=== PATIENT | female | born 1985 ===

== ENCOUNTER 2018-03-05 09:35 | Emergency (ER) | payer MEDICARE, BC ==
[~2018-03-05] VITALS: Ht 182.9 cm; Wt 145.2 kg
[2018-03-05] MEDS ORDERED: BACL20 PO (10:03)
[2018-03-05] MEDS ORDERED: GABA400 PO (10:03)
[2018-03-05] MEDS ORDERED: BELBUCA450 MCG BC (10:03)
[2018-03-05] MEDS ORDERED: DULO30 PO (10:04)
[2018-03-05] MEDS ORDERED: Synthroid25 MCG PO (10:04)
[2018-03-05] MEDS ORDERED: Amitriptyline100 MG PO (10:04)
[2018-03-05] MEDS ORDERED: Zofran Odt4 MG SL (11:01)
== END 2018-03-05 11:05 | disposition home or self-care (01) ==
LOC: ER 09:35
DX: S09.90XA Unspecified injury of head, initial encounter (principal); R11.2 Nausea with vomiting, unspecified; Z88.0 Allergy status to penicillin; Z79.899 Other long term (current) drug therapy; W18.30XA Fall on same level, unspecified, initial encounter
CPT/HCPCS: 70450; 99284-25

== ENCOUNTER 2018-05-21 09:32 | Emergency (ER) | payer MEDICARE, BC ==
[~2018-05-21] VITALS: Ht 182.9 cm; Wt 136.1 kg
[~2018-05-21 09:32] MED LIST: Amitriptyline100 MG PO; BACL20 PO; BELBUCA450 MCG BC; DULO30 PO; GABA400 PO; Synthroid25 MCG PO; Zofran Odt4 MG SL
[2018-05-21 11:08] LABS: BASOPHILS ABSOLUTE AUTO 0.02 K/mm3 (0.00-0.23); BASOPHILS PERCENT AUTO 0 % (0-2); EOSINOPHILS ABSOLUTE AUTO 0.02 K/mm3 (0.00-0.68); EOSINOPHILS PERCENT AUTO 0 % (0-6); Hematocrit 44.9 % (33.0-51.0); Hemoglobin 14.7 g/dL (11.5-16.0); IMMATURE GRAN ABSOLUTE AUTO 0.05 K/mm3 (0.00-0.10); IMMATURE GRAN PERCENT AUTO 1 % (0-1); LYMPHOCYTES ABSOLUTE AUTO 1.14 K/mm3 (0.84-5.20); LYMPHOCYTES PERCENT AUTO 14 % (21-46); MONOCYTES ABSOLUTE AUTO 0.46 K/mm3 (0.16-1.47); MONOCYTES PERCENT AUTO 6 % (4-13); Mean Corpuscular HGB 27.7 pg (26.0-34.0); Mean Corpuscular HGB Conc 32.7 g/dL (31.5-36.5); Mean Corpuscular Volume 85 fL (80-100); Mean Platelet Volume 10.3 fL (9.1-12.4); NEUTROPHILS ABSOLUTE AUTO 6.21 K/mm3 (1.96-9.15); NEUTROPHILS PERCENT AUTO 79 % (41-73); Platelet Count 251 K/mm3 (150-400); RDW Coefficient Variation 14.2 % (11.7-14.2); Red Blood Cell Count 5.31 M/mm3 (3.80-5.20)
[2018-05-21 11:32] LABS: Alanine Aminotransfer (ALT/SGP 67 U/L (12-78); Albumin, Blood 4.6 g/dL (3.4-5.0); Alk Phos 113 U/L (50-136); Anion Gap 8 mmol/L (6-16); Aspartate Aminotrans (AST/SGOT 27 U/L (12-37); Bilirubin, Total 0.8 mg/dL (0.1-1.0); Blood Urea Nitrogen 17 mg/dL (8-24); Bun/Creatinine Ratio 17.6 (12.0-20.0); CO2, Blood 27 mmol/L (21-32); Calcium, Blood 9.4 mg/dL (8.5-10.1); Chloride, Blood 103 mmol/L (98-108); Creatinine, Blood 0.96 mg/dL (0.40-1.00); Globulin, Blood 4.5 g/dL (2.2-4.0); Glomerular Filtration Rate >60 (60-); Glucose, Blood 115 mg/dL (70-99); Potassium, Blood 4.2 mmol/L (3.5-5.5); Sodium, Blood 138 mmol/L (136-145); Total Protein, Blood 9.1 g/dL (6.4-8.2)
[2018-05-21 11:45] LABS: Source, Urine Clean Catch
[2018-05-21 11:52] LABS: Appearance, Urine Hazy (Clear); Bilirubin, Urine Neg (Neg); Blood, Urine Neg (Neg); Color, Urine Yellow (P-Yellow); Glucose Qualitative, Urine Neg (Neg); Ketones, Urine 2+ (Neg); Leukocyte Esterase, Urine 1+ (Neg); Nitrite, Urine Neg (Neg); Protein, Urine 3+ (Neg); Specific Gravity, Urine 1.025 (1.003-1.022); Urobilinogen, Urine NORM (Normal)
[2018-05-21 12:47] LABS: Bacteria Mod /hpf; Red Blood Cells, Urine Not Seen /hpf (0-2); Squamous Epithelial Cells Few /hpf (Few)
[2018-05-21] MEDS ORDERED: PROM25 PO (12:49)
== END 2018-05-21 13:16 | disposition home or self-care (01) ==
LOC: ER 09:32
PROVIDERS: Emergency Medicine
DX: G35 Multiple sclerosis (principal); R11.2 Nausea with vomiting, unspecified; Z88.0 Allergy status to penicillin; Z79.899 Other long term (current) drug therapy
CPT/HCPCS: 36415; 80053; 81001; 81025; 85025; 87086; 96361; 96374; 96375; 99284-25; J2405; J2765; J7030

== ENCOUNTER 2018-06-01 18:28 | Emergency (ER) | payer MEDICARE, BC ==
[~2018-06-01] VITALS: Ht 182.9 cm; Wt 136.1 kg
[~2018-06-01 18:28] MED LIST changes: +PROM25 PO
[2018-06-01 19:23] LABS: BASOPHILS ABSOLUTE AUTO 0.02 K/mm3 (0.00-0.23); BASOPHILS PERCENT AUTO 0 % (0-2); EOSINOPHILS ABSOLUTE AUTO 0.03 K/mm3 (0.00-0.68); EOSINOPHILS PERCENT AUTO 0 % (0-6); Hematocrit 43.1 % (33.0-51.0); Hemoglobin 14.3 g/dL (11.5-16.0); IMMATURE GRAN ABSOLUTE AUTO 0.04 K/mm3 (0.00-0.10); IMMATURE GRAN PERCENT AUTO 1 % (0-1); LYMPHOCYTES PERCENT AUTO 19 % (21-46); MONOCYTES ABSOLUTE AUTO 0.44 K/mm3 (0.16-1.47); MONOCYTES PERCENT AUTO 7 % (4-13); Mean Corpuscular HGB 27.9 pg (26.0-34.0); Mean Corpuscular HGB Conc 33.2 g/dL (31.5-36.5); Mean Corpuscular Volume 84 fL (80-100); Mean Platelet Volume 10.3 fL (9.1-12.4); NEUTROPHILS PERCENT AUTO 73 % (41-73); Platelet Count 246 K/mm3 (150-400); RDW Coefficient Variation 13.8 % (11.7-14.2); RDW Standard Deviation 42.5 fL (35.1-46.3); Red Blood Cell Count 5.12 M/mm3 (3.80-5.20); White Blood Cell Count 6.73 K/mm3 (4.00-11.30)
[2018-06-01 19:47] LABS: Alanine Aminotransfer (ALT/SGP 69 U/L (12-78); Albumin, Blood 4.2 g/dL (3.4-5.0); Alk Phos 105 U/L (50-136); Anion Gap 6 mmol/L (6-16); Aspartate Aminotrans (AST/SGOT 29 U/L (12-37); Bilirubin, Total 0.5 mg/dL (0.1-1.0); Blood Urea Nitrogen 10 mg/dL (8-24); Bun/Creatinine Ratio 10.2 (12.0-20.0); CO2, Blood 27 mmol/L (21-32); Calcium, Blood 9.3 mg/dL (8.5-10.1); Chloride, Blood 105 mmol/L (98-108); Creatinine, Blood 0.98 mg/dL (0.40-1.00); Globulin, Blood 4.1 g/dL (2.2-4.0); Glomerular Filtration Rate >60 (60-); Glucose, Blood 94 mg/dL (70-99); Potassium, Blood 4.1 mmol/L (3.5-5.5); Sodium, Blood 138 mmol/L (136-145); Total Protein, Blood 8.3 g/dL (6.4-8.2)
[2018-06-01] MEDS ORDERED: PHENERGAN25 MG PR (20:05)
== END 2018-06-01 20:58 | disposition home or self-care (01) ==
LOC: ER 18:28
PROVIDERS: Emergency Medicine
DX: G35 Multiple sclerosis (principal); R11.2 Nausea with vomiting, unspecified; Z88.0 Allergy status to penicillin; Z79.899 Other long term (current) drug therapy
CPT/HCPCS: 36415; 80053; 85025; 96374; 96375; 99284-25; J1200; J2550

== ENCOUNTER 2018-12-19 16:03 | Emergency (ER) | payer MEDICARE, BC ==
[~2018-12-19] VITALS: Ht 177.8 cm; Wt 136.1 kg
[~2018-12-19 16:03] MED LIST changes: +PHENERGAN25 MG PR
[2018-12-19 16:46] LABS: BASOPHILS PERCENT AUTO 1 % (0-2); EOSINOPHILS ABSOLUTE AUTO 0.74 K/mm3 (0.00-0.68); EOSINOPHILS PERCENT AUTO 7 % (0-6); Hematocrit 43.3 % (33.0-51.0); Hemoglobin 14.2 g/dL (11.5-16.0); IMMATURE GRAN ABSOLUTE AUTO 0.14 K/mm3 (0.00-0.10); IMMATURE GRAN PERCENT AUTO 1 % (0-1); LYMPHOCYTES PERCENT AUTO 30 % (21-46); MONOCYTES ABSOLUTE AUTO 0.69 K/mm3 (0.16-1.47); MONOCYTES PERCENT AUTO 7 % (4-13); Mean Corpuscular HGB 28.2 pg (26.0-34.0); Mean Corpuscular HGB Conc 32.8 g/dL (31.5-36.5); Mean Corpuscular Volume 86 fL (80-100); Mean Platelet Volume 10.2 fL (9.1-12.4); NEUTROPHILS ABSOLUTE AUTO 5.64 K/mm3 (1.96-9.15); NEUTROPHILS PERCENT AUTO 54 % (41-73); NRBC ABSOLUTE 0.03 K/mm3 (0.00-0.02); NRBC Auto 0.3 /100 WBC (0.0-0.2); Platelet Count 290 K/mm3 (150-400); RDW Coefficient Variation 13.4 % (11.7-14.2); RDW Standard Deviation 41.5 fL (35.1-46.3); Red Blood Cell Count 5.03 M/mm3 (3.80-5.20); White Blood Cell Count 10.51 K/mm3 (4.00-11.30)
[2018-12-19 17:06] LABS: Source, Urine Clean Catch
[2018-12-19 17:08] LABS: Bilirubin, Urine Neg (Neg); Blood, Urine Neg (Neg); Glucose Qualitative, Urine Neg (Neg); Ketones, Urine 1+ (Neg); Leukocyte Esterase, Urine 3+ (Neg); Nitrite, Urine Neg (Neg); Protein, Urine Neg (Neg); Urobilinogen, Urine 1+ (Normal)
[2018-12-19 17:16] LABS: Alanine Aminotransfer (ALT/SGP 39 U/L (12-78); Albumin, Blood 4.1 g/dL (3.4-5.0); Alk Phos 127 U/L (50-136); Anion Gap 4 mmol/L (6-16); Aspartate Aminotrans (AST/SGOT 22 U/L (12-37); Bilirubin, Total 0.3 mg/dL (0.1-1.0); Blood Urea Nitrogen 12 mg/dL (8-24); Bun/Creatinine Ratio 15.2 (12.0-20.0); CO2, Blood 25 mmol/L (21-32); Calcium, Blood 9.2 mg/dL (8.5-10.1); Chloride, Blood 109 mmol/L (98-108); Creatinine, Blood 0.79 mg/dL (0.40-1.00); Glomerular Filtration Rate >60 (60-); Glucose, Blood 95 mg/dL (70-99); Potassium, Blood 3.9 mmol/L (3.5-5.5); Sodium, Blood 138 mmol/L (136-145); Total Protein, Blood 8.1 g/dL (6.4-8.2)
[2018-12-19 17:21] LABS: Appearance, Urine Clear (Clear); Bacteria Mod /hpf; Color, Urine Yellow (P-Yellow); Red Blood Cells, Urine 0-2 /hpf (0-2); Squamous Epithelial Cells Few /hpf (Few)
[2018-12-19] MEDS ORDERED: Tizanidine HCl2 MG (17:56)
[2019-01-17] MEDS ORDERED: DULO60 PO (11:14)
== END 2018-12-19 20:10 | disposition home or self-care (01) ==
LOC: ER 16:03
PROVIDERS: Physician Assistant
DX: G35 Multiple sclerosis (principal); R42 Dizziness and giddiness; Z88.0 Allergy status to penicillin; Z79.899 Other long term (current) drug therapy
CPT/HCPCS: 36415; 80053; 81001; 85025; 87077; 87086; 87186; 99284

== ENCOUNTER 2019-01-18 00:14 | Day surgery (SDC) | payer MEDICARE, BC ==
[~2019-01-18 00:14] MED LIST changes: +DULO60 PO; +Tizanidine HCl2 MG
== END 2019-01-18 11:10 | disposition home or self-care (01) ==
LOC: ATC 00:14
DX: G35 Multiple sclerosis (principal)
CPT/HCPCS: 96365; J2323

== ENCOUNTER 2019-01-22 16:14 | Emergency (ER) | payer MEDICARE, BC ==
[~2019-01-22] VITALS: Ht 180.3 cm; Wt 149.7 kg
== END 2019-01-22 19:42 | disposition home or self-care (01) ==
LOC: ER 16:14
DX: G35 Multiple sclerosis (principal); Z88.0 Allergy status to penicillin; Z79.899 Other long term (current) drug therapy
CPT/HCPCS: 96365; 99283-25; J1642; J2930

== ENCOUNTER 2019-01-23 18:49 | Emergency (ER) | payer MEDICARE, BC ==
[~2019-01-23] VITALS: Ht 182.9 cm; Wt 145.2 kg
== END 2019-01-23 21:30 | disposition home or self-care (01) ==
LOC: ER 18:49
DX: Z76.0 Encounter for issue of repeat prescription (principal); Z88.0 Allergy status to penicillin; Z79.899 Other long term (current) drug therapy
CPT/HCPCS: 96365; J2930

== ENCOUNTER 2019-01-24 18:55 | Emergency (ER) | payer MEDICARE, BC ==
[~2019-01-24] VITALS: Ht 182.9 cm; Wt 145.2 kg
== END 2019-01-24 20:44 | disposition home or self-care (01) ==
LOC: ER 18:55
DX: G35 Multiple sclerosis (principal); Z88.0 Allergy status to penicillin; Z79.899 Other long term (current) drug therapy
CPT/HCPCS: 96365; 99281-25; J2930

== ENCOUNTER 2019-02-17 00:18 | Day surgery (SDC) | payer MEDICARE, BC ==
--- NOTE | 2019-02-17 09:40 | NUR ---
PT DOESN'T TAKE PRE-MEDS.
--- NOTE | 2019-02-17 11:43 | NUR ---
PT DC'D 1 HOUR AFTER INFUSION COMPLETE, PER PROTOCOL. NO COMPLAINTS @ THIS TIME. LEFT FACILITY IN STABLE CONDITION.
== END 2019-02-17 11:42 | disposition home or self-care (01) ==
LOC: ATC 00:18
DX: G35 Multiple sclerosis (principal)
CPT/HCPCS: 96365; J1642; J2323

== ENCOUNTER 2019-03-23 00:16 | Day surgery (SDC) | payer MEDICARE, BC | END 2019-03-23 11:57 | disposition home or self-care (01) | LOC: ATC 00:16 | DX: G35 Multiple sclerosis (principal); Z88.0 Allergy status to penicillin; Z79.899 Other long term (current) drug therapy | CPT/HCPCS: 96365; J1642; J2323; J7050 ==

== ENCOUNTER 2019-04-15 00:24 | Day surgery (SDC) | payer MEDICARE, BC ==
--- NOTE | 2019-04-15 12:36 | NUR ---
PT REFUSED PRE-MEDS.
== END 2019-04-15 13:17 | disposition home or self-care (01) ==
LOC: ATC 00:24
DX: G35 Multiple sclerosis (principal)
CPT/HCPCS: 96365; J1642; J2323; J7050

== ENCOUNTER 2019-05-16 00:08 | Day surgery (SDC) | payer MEDICARE, BC ==
[2019-05-16] MEDS ORDERED: LAMOTRIGINE100 M1 PO (09:35)
[2019-05-16] MEDS ORDERED: Tysabri300 MG/15 IV (09:36)
== END 2019-05-16 11:39 | disposition home or self-care (01) ==
LOC: ATC 00:08
DX: G35 Multiple sclerosis (principal); Z79.899 Other long term (current) drug therapy; Z88.0 Allergy status to penicillin
CPT/HCPCS: 96365; J1642; J2323; J7050

== ENCOUNTER 2019-06-20 00:02 | Day surgery (SDC) | payer MEDICARE, BC ==
[~2019-06-20 00:02] MED LIST changes: +LAMOTRIGINE100 M1 PO; +Tysabri300 MG/15 IV
== END 2019-06-20 11:17 | disposition home or self-care (01) ==
LOC: ATC 00:02
DX: G35 Multiple sclerosis (principal); Z88.0 Allergy status to penicillin
CPT/HCPCS: 96375; 96413; A9270; J1642; J2323; J7050; Q0163

== ENCOUNTER 2019-08-24 00:10 | Day surgery (SDC) | payer MEDICARE, BC | END 2019-08-24 12:04 | disposition home or self-care (01) | LOC: ATC 00:10 | DX: G35 Multiple sclerosis (principal); M79.2 Neuralgia and neuritis, unspecified; F41.8 Other specified anxiety disorders; R26.81 Unsteadiness on feet; Z79.899 Other long term (current) drug therapy; Z88.0 Allergy status to penicillin | CPT/HCPCS: 96365; J1642; J2323; J7050 ==

== ENCOUNTER 2019-09-22 | Day surgery (SDC) | payer MEDICARE, BC | END 2019-09-22 11:07 | disposition home or self-care (01) | LOC: ATC | DX: G35 Multiple sclerosis (principal); F32.9 Major depressive disorder, single episode, unspecified; Z79.899 Other long term (current) drug therapy; Z88.0 Allergy status to penicillin; F41.9 Anxiety disorder, unspecified | CPT/HCPCS: 96365; J1642; J2323; J7050 ==

== ENCOUNTER 2019-09-30 09:18 | Emergency (ER) | payer MEDICARE, BC ==
[~2019-09-30] VITALS: Ht 182.9 cm; Wt 154.2 kg
[2019-09-30 10:36] LABS: BASOPHILS ABSOLUTE AUTO 0.13 K/mm3 (0.00-0.23); BASOPHILS PERCENT AUTO 2 % (0-2); EOSINOPHILS ABSOLUTE AUTO 1.28 K/mm3 (0.00-0.68); EOSINOPHILS PERCENT AUTO 16 % (0-6); Hematocrit 35.3 % (33.0-51.0); Hemoglobin 11.1 g/dL (11.5-16.0); IMMATURE GRAN ABSOLUTE AUTO 0.18 K/mm3 (0.00-0.10); IMMATURE GRAN PERCENT AUTO 2 % (0-1); LYMPHOCYTES ABSOLUTE AUTO 1.92 K/mm3 (0.84-5.20); LYMPHOCYTES PERCENT AUTO 24 % (21-46); MONOCYTES ABSOLUTE AUTO 0.56 K/mm3 (0.16-1.47); MONOCYTES PERCENT AUTO 7 % (4-13); Mean Corpuscular HGB 27.7 pg (26.0-34.0); Mean Corpuscular HGB Conc 31.4 g/dL (31.5-36.5); Mean Corpuscular Volume 88 fL (80-100); Mean Platelet Volume 9.3 fL (9.1-12.4); NEUTROPHILS PERCENT AUTO 49 % (41-73); NRBC Auto 1.3 /100 WBC (0.0-0.2); Platelet Count 237 K/mm3 (150-400); RDW Coefficient Variation 14.8 % (11.7-14.2); RDW Standard Deviation 47.1 fL (35.1-46.3); Red Blood Cell Count 4.01 M/mm3 (3.80-5.20); White Blood Cell Count 7.97 K/mm3 (4.00-11.30)
[2019-09-30 10:55] LABS: Alanine Aminotransfer (ALT/SGP 63 U/L (12-78); Albumin, Blood 3.6 g/dL (3.4-5.0); Alk Phos 125 U/L (50-136); Anion Gap 6 mmol/L (6-16); Aspartate Aminotrans (AST/SGOT 38 U/L (12-37); Bilirubin, Total 0.3 mg/dL (0.1-1.0); Blood Urea Nitrogen 17 mg/dL (8-24); Bun/Creatinine Ratio 18.8 (12.0-20.0); CO2, Blood 26 mmol/L (21-32); Calcium, Blood 8.4 mg/dL (8.5-10.1); Chloride, Blood 110 mmol/L (98-108); Globulin, Blood 3.5 g/dL (2.2-4.0); Glomerular Filtration Rate >60 (60-); Glucose, Blood 113 mg/dL (70-99); Potassium, Blood 4.2 mmol/L (3.5-5.5); Sodium, Blood 142 mmol/L (136-145); Total Protein, Blood 7.1 g/dL (6.4-8.2)
[2019-10-01] MEDS ORDERED: METHYLPREDNIS1000 M1 IV (14:37)
== END 2019-09-30 12:36 | disposition home or self-care (01) ==
LOC: ER 09:18
PROVIDERS: Emergency Medicine
DX: G35 Multiple sclerosis (principal); Z88.0 Allergy status to penicillin; Z79.899 Other long term (current) drug therapy
CPT/HCPCS: 36415; 80053; 85025; 96365; 99283-25; J2930

== ENCOUNTER 2019-10-01 00:38 | Day surgery (SDC) | payer MEDICARE, BC ==
[2019-10-01] MEDS ORDERED: METHYLPREDNIS1000 M1 IV (14:37)
== END 2019-10-01 22:35 | disposition home or self-care (01) ==
LOC: ATC 00:38
DX: G35 Multiple sclerosis (principal); F41.9 Anxiety disorder, unspecified; F32.9 Major depressive disorder, single episode, unspecified; Z79.899 Other long term (current) drug therapy
CPT/HCPCS: 96365; J1642

== ENCOUNTER 2019-10-04 00:13 | Day surgery (SDC) | payer MEDICARE, BC ==
[~2019-10-04 00:13] MED LIST changes: +METHYLPREDNIS1000 M1 IV
== END 2019-10-04 15:04 | disposition home or self-care (01) ==
LOC: ATC 00:13
DX: G35 Multiple sclerosis (principal); F41.9 Anxiety disorder, unspecified; F32.9 Major depressive disorder, single episode, unspecified; Z88.0 Allergy status to penicillin; Z79.899 Other long term (current) drug therapy
CPT/HCPCS: 96365; J1642; J2930

== ENCOUNTER 2019-10-05 00:11 | Day surgery (SDC) | payer MEDICARE, BC ==
--- NOTE | 2019-10-05 14:58 | NUR ---
ATTEMPTED TO FLUSH PORT AND PT C/O BURNING PAIN WITH ONLY 1 ML OF NS, NEEDLE EXCHANGED FOR NEW ONE. FLUSHES WELL PT DENIES ANY DISCOMFORT.
== END 2019-10-05 15:28 | disposition home or self-care (01) ==
LOC: ATC 00:11
DX: G35 Multiple sclerosis (principal); F32.9 Major depressive disorder, single episode, unspecified; F41.9 Anxiety disorder, unspecified; Z88.0 Allergy status to penicillin; Z79.899 Other long term (current) drug therapy
CPT/HCPCS: 96365; J1642; J2930

== ENCOUNTER 2019-10-20 00:05 | Day surgery (SDC) | payer MEDICARE, BC | END 2019-10-20 10:36 | disposition home or self-care (01) | LOC: ATC 00:05 | DX: G35 Multiple sclerosis (principal); F32.9 Major depressive disorder, single episode, unspecified; Z79.899 Other long term (current) drug therapy; Z88.0 Allergy status to penicillin | CPT/HCPCS: 96365; J1642; J2323; J7050 ==

== ENCOUNTER 2019-11-29 00:13 | Day surgery (SDC) | payer MEDICARE, BC ==
--- NOTE | 2019-11-29 11:04 | NUR ---
PT CONTINUES TO BE UNSTEADY ON FEET, PT ALSO WITH PAIN IN LOW BACK. THIS HAS BEEN GOING ON FOR MONTHS.
== END 2019-11-29 10:45 | disposition home or self-care (01) ==
LOC: ATC 00:13
DX: G35 Multiple sclerosis (principal); F32.9 Major depressive disorder, single episode, unspecified; Z79.899 Other long term (current) drug therapy; Z88.0 Allergy status to penicillin
CPT/HCPCS: 96365; J1642; J2323; J7050

== ENCOUNTER 2020-01-04 00:36 | Day surgery (SDC) | payer MEDICARE, BC ==
--- NOTE | 2020-01-04 08:15 | NUR ---
PT DECLINES PRE MEDS.
== END 2020-01-04 10:42 | disposition home or self-care (01) ==
LOC: ATC 00:36
DX: G35 Multiple sclerosis (principal); F32.9 Major depressive disorder, single episode, unspecified; Z88.0 Allergy status to penicillin; Z79.899 Other long term (current) drug therapy; F41.9 Anxiety disorder, unspecified; M79.2 Neuralgia and neuritis, unspecified
CPT/HCPCS: A9270; J1642; J2323; J7050; Q0163

== ENCOUNTER 2020-02-08 00:06 | Day surgery (SDC) | payer MEDICARE, BC ==
--- NOTE | 2020-02-08 09:00 | NUR ---
PT HERE FOR OMID, QUESTIONS ASKED AND NOTED ON FORM. PT TEMP ELEVATED SHE HAS A BEENIE CAP ON. PT VERY UNSTEADY.
[2020-02-08] MEDS ORDERED: TYSABRI IV (10:14)
== END 2020-02-08 11:10 | disposition home or self-care (01) ==
LOC: ATC 00:06
DX: G35 Multiple sclerosis (principal); Z88.0 Allergy status to penicillin; F32.9 Major depressive disorder, single episode, unspecified; Z79.899 Other long term (current) drug therapy
CPT/HCPCS: 96365; J1642; J2323; J7050

== ENCOUNTER 2020-03-14 02:39 | Day surgery (SDC) | payer MEDICARE, BC ==
[~2020-03-14 02:39] MED LIST changes: +TYSABRI IV
== END 2020-03-14 11:41 | disposition home or self-care (01) ==
LOC: ATC 02:39
DX: G35 Multiple sclerosis (principal); Z88.0 Allergy status to penicillin
CPT/HCPCS: 96365; J1642; J2323; J7050

== ENCOUNTER 2020-04-12 20:24 | Emergency (ER) | payer MEDICARE, BC ==
[~2020-04-12] VITALS: Ht 182.9 cm; Wt 154.2 kg
[2020-04-12] MEDS ORDERED: NEURONTIN300 MG (20:30)
== END 2020-04-12 22:02 | disposition home or self-care (01) ==
LOC: ER 20:24
DX: S91.311A Laceration without foreign body, right foot, initial encounter (principal); Z88.0 Allergy status to penicillin; Z79.899 Other long term (current) drug therapy; W25.XXXA Contact with sharp glass, initial encounter; Y92.002 Bathroom of unspecified non-institutional (private) residence as the place of occurrence of the external cause
CPT/HCPCS: 12001; 99282-25

== ENCOUNTER 2020-04-17 00:10 | Day surgery (SDC) | payer MEDICARE, BC ==
[~2020-04-17 00:10] MED LIST changes: +NEURONTIN300 MG
== END 2020-04-17 12:27 | disposition home or self-care (01) ==
LOC: ATC 00:10
DX: G35 Multiple sclerosis (principal); R26.89 Other abnormalities of gait and mobility; F32.9 Major depressive disorder, single episode, unspecified; F41.9 Anxiety disorder, unspecified; Z88.0 Allergy status to penicillin; Z79.899 Other long term (current) drug therapy
CPT/HCPCS: 96365; 96368; J1642; J2323; J7050

== ENCOUNTER 2020-05-16 00:09 | Day surgery (SDC) | payer MEDICARE, BC ==
[2020-05-16] MEDS ORDERED: TYSABRI IV (08:38)
[2020-10-18] MEDS ORDERED: CEPH500 PO (02:11)
== END 2020-05-16 11:06 | disposition home or self-care (01) ==
LOC: ATC 00:09
DX: G35 Multiple sclerosis (principal); R26.89 Other abnormalities of gait and mobility; F41.8 Other specified anxiety disorders; Z88.0 Allergy status to penicillin; Z79.899 Other long term (current) drug therapy
CPT/HCPCS: 96365; J1642; J2323; J7050

== ENCOUNTER 2020-06-25 08:16 | Day surgery (SDC) | payer MEDICARE, BC ==
--- NOTE | 2020-06-25 09:40 | NUR ---
PT REFUSED PRE-MEDS.
[2020-10-18] MEDS ORDERED: CEPH500 PO (02:11)
== END 2020-06-25 11:50 | disposition home or self-care (01) ==
LOC: ATC 08:16
DX: G35 Multiple sclerosis (principal); F32.9 Major depressive disorder, single episode, unspecified; F41.9 Anxiety disorder, unspecified; M79.2 Neuralgia and neuritis, unspecified; Z88.0 Allergy status to penicillin; Z79.899 Other long term (current) drug therapy
CPT/HCPCS: 96365; A9270; J1642; J2323; J7050

== ENCOUNTER 2020-08-18 23:47 | Emergency (ER) | payer MEDICARE, BC ==
[~2020-08-18] VITALS: Ht 182.9 cm; Wt 272.2 kg
[2020-08-19 00:30] LABS: BASOPHILS ABSOLUTE AUTO 0.05 K/mm3 (0.00-0.23); BASOPHILS PERCENT AUTO 1 % (0-2); EOSINOPHILS ABSOLUTE AUTO 1.08 K/mm3 (0.00-0.68); EOSINOPHILS PERCENT AUTO 15 % (0-6); Hematocrit 32.1 % (33.0-51.0); Hemoglobin 9.8 g/dL (11.5-16.0); IMMATURE GRAN ABSOLUTE AUTO 0.07 K/mm3 (0.00-0.10); IMMATURE GRAN PERCENT AUTO 1 % (0-1); LYMPHOCYTES ABSOLUTE AUTO 1.85 K/mm3 (0.84-5.20); LYMPHOCYTES PERCENT AUTO 26 % (21-46); MONOCYTES ABSOLUTE AUTO 0.56 K/mm3 (0.16-1.47); MONOCYTES PERCENT AUTO 8 % (4-13); Mean Corpuscular HGB 23.6 pg (26.0-34.0); Mean Corpuscular HGB Conc 30.5 g/dL (31.5-36.5); Mean Corpuscular Volume 77 fL (80-100); Mean Platelet Volume 9.2 fL (9.1-12.4); NEUTROPHILS ABSOLUTE AUTO 3.48 K/mm3 (1.96-9.15); NEUTROPHILS PERCENT AUTO 49 % (41-73); NRBC ABSOLUTE 0.03 K/mm3 (0.00-0.02); NRBC Auto 0.4 /100 WBC (0.0-0.2); Platelet Count 310 K/mm3 (150-400); RDW Coefficient Variation 16.3 % (11.7-14.2); RDW Standard Deviation 45.3 fL (35.1-46.3); Red Blood Cell Count 4.15 M/mm3 (3.80-5.20); White Blood Cell Count 7.09 K/mm3 (4.00-11.30)
[2020-08-19 00:47] LABS: Alanine Aminotransfer (ALT/SGP 73 U/L (12-78); Albumin, Blood 3.3 g/dL (3.4-5.0); Albumin/Globulin Ratio 0.9 (0.8-1.8); Alk Phos 129 U/L (50-136); Anion Gap 5 mmol/L (6-16); Aspartate Aminotrans (AST/SGOT 59 U/L (12-37); Bilirubin, Total 0.3 mg/dL (0.1-1.0); Blood Urea Nitrogen 11 mg/dL (8-24); Bun/Creatinine Ratio 11.2 (12.0-20.0); CO2, Blood 27 mmol/L (21-32); Calcium, Blood 8.7 mg/dL (8.5-10.1); Chloride, Blood 109 mmol/L (98-108); Creatinine, Blood 0.98 mg/dL (0.40-1.00); Globulin, Blood 3.7 g/dL (2.2-4.0); Glomerular Filtration Rate >60 (60-); Glucose, Blood 141 mg/dL (70-99); Potassium, Blood 4.2 mmol/L (3.5-5.5); Sodium, Blood 141 mmol/L (136-145)
== END 2020-08-19 02:47 | disposition home or self-care (01) ==
LOC: ER 23:47
PROVIDERS: Emergency Medicine
DX: M79.651 Pain in right thigh (principal); Z79.899 Other long term (current) drug therapy
CPT/HCPCS: 80053; 85025; 99284; A9270

== ENCOUNTER 2020-09-28 00:46 | Day surgery (SDC) | payer MEDICARE, BC ==
--- NOTE | 2020-09-28 09:20 | NUR ---
PT DECLINES PRE MEDS.
[2020-10-18] MEDS ORDERED: CEPH500 PO (02:11)
== END 2020-09-28 11:59 | disposition home or self-care (01) ==
LOC: ATC 00:46
DX: G35 Multiple sclerosis (principal); M79.2 Neuralgia and neuritis, unspecified; E66.01 Morbid (severe) obesity due to excess calories; Z68.42 Body mass index [BMI] 45.0-49.9, adult
CPT/HCPCS: 96365; J1642; J2323; J7050

== ENCOUNTER 2020-10-17 12:54 | Emergency (ER) | payer MEDICARE, BC ==
[~2020-10-17] VITALS: Ht 182.9 cm; Wt 272.2 kg
[2020-10-17 13:52] LABS: BASOPHILS ABSOLUTE AUTO 0.11 K/mm3 (0.00-0.23); BASOPHILS PERCENT AUTO 1 % (0-2); EOSINOPHILS ABSOLUTE AUTO 2.33 K/mm3 (0.00-0.68); EOSINOPHILS PERCENT AUTO 20 % (0-6); Hematocrit 33.4 % (33.0-51.0); Hemoglobin 10.1 g/dL (11.5-16.0); IMMATURE GRAN ABSOLUTE AUTO 0.15 K/mm3 (0.00-0.10); IMMATURE GRAN PERCENT AUTO 1 % (0-1); LYMPHOCYTES ABSOLUTE AUTO 2.94 K/mm3 (0.84-5.20); LYMPHOCYTES PERCENT AUTO 26 % (21-46); MONOCYTES ABSOLUTE AUTO 0.86 K/mm3 (0.16-1.47); MONOCYTES PERCENT AUTO 8 % (4-13); Mean Corpuscular HGB 23.1 pg (26.0-34.0); Mean Corpuscular HGB Conc 30.2 g/dL (31.5-36.5); Mean Corpuscular Volume 76 fL (80-100); NEUTROPHILS PERCENT AUTO 44 % (41-73); NRBC ABSOLUTE 0.17 K/mm3 (0.00-0.02); NRBC Auto 1.5 /100 WBC (0.0-0.2); Platelet Count 258 K/mm3 (150-400); RDW Coefficient Variation 17.2 % (11.7-14.2); RDW Standard Deviation 47.3 fL (35.1-46.3); Red Blood Cell Count 4.37 M/mm3 (3.80-5.20); White Blood Cell Count 11.49 K/mm3 (4.00-11.30)
[2020-10-17 14:09] LABS: Alanine Aminotransfer (ALT/SGP 60 U/L (12-78); Albumin, Blood 3.4 g/dL (3.4-5.0); Albumin/Globulin Ratio 0.9 (0.8-1.8); Alk Phos 149 U/L (50-136); Anion Gap 5 mmol/L (6-16); Aspartate Aminotrans (AST/SGOT 37 U/L (12-37); Bilirubin, Total 0.2 mg/dL (0.1-1.0); Blood Urea Nitrogen 11 mg/dL (8-24); Bun/Creatinine Ratio 11.1 (12.0-20.0); CO2, Blood 27 mmol/L (21-32); Calcium, Blood 8.6 mg/dL (8.5-10.1); Chloride, Blood 106 mmol/L (98-108); Creatinine, Blood 0.99 mg/dL (0.40-1.00); Globulin, Blood 3.7 g/dL (2.2-4.0); Glomerular Filtration Rate >60 (60-); Glucose, Blood 89 mg/dL (70-99); Potassium, Blood 4.1 mmol/L (3.5-5.5); Sodium, Blood 138 mmol/L (136-145); Total Protein, Blood 7.1 g/dL (6.4-8.2)
[2020-10-17 19:25] LABS: Source, Urine Clean Catch
[2020-10-17 19:28] LABS: Bilirubin, Urine Neg (Neg); Blood, Urine Neg (Neg); Glucose Qualitative, Urine Neg (Neg); Ketones, Urine Neg (Neg); Leukocyte Esterase, Urine 2+ (Neg); Nitrite, Urine Neg (Neg); Protein, Urine Neg (Neg); Urobilinogen, Urine NORM (Normal)
[2020-10-17 19:38] LABS: Appearance, Urine Hazy (Clear); Color, Urine Yellow (P-Yellow)
[2020-10-17 19:40] LABS: Bacteria Few /hpf; Red Blood Cells, Urine Not Seen /hpf (0-2); Squamous Epithelial Cells Mod /hpf (Few)
[2020-10-18] MEDS ORDERED: CEPH500 PO (02:11)
== END 2020-10-17 21:31 | disposition home or self-care (01) ==
LOC: ER 12:54
PROVIDERS: Emergency Medicine; Physician Assistant
DX: G35 Multiple sclerosis (principal); N39.0 Urinary tract infection, site not specified; Z88.0 Allergy status to penicillin; Z79.899 Other long term (current) drug therapy
CPT/HCPCS: 36415; 80053; 81001; 82550; 85025; 87086; 96365; 96367; 96375; 96376; 99283-25; J0696; J2270; J2930; P9612

== ENCOUNTER 2020-10-18 10:04 | Day surgery (SDC) | payer MEDICARE, BC ==
[~2020-10-18 10:04] MED LIST changes: +CEPH500 PO
== END 2020-10-18 11:55 | disposition home or self-care (01) ==
LOC: ATC 10:04
DX: G35 Multiple sclerosis (principal); N39.0 Urinary tract infection, site not specified
CPT/HCPCS: 96365; J1642; J2930

== ENCOUNTER 2020-10-19 04:54 | Day surgery (SDC) | payer MEDICARE, BC ==
[2020-10-20] MEDS ORDERED: SOLU-MEDROL1000 M1 IV (09:16)
== END 2020-10-19 10:13 | disposition home or self-care (01) ==
LOC: ATC 04:54
DX: G35 Multiple sclerosis (principal); Z88.0 Allergy status to penicillin
CPT/HCPCS: 96365; J1642; J2930

== ENCOUNTER 2020-10-20 08:53 | Day surgery (SDC) | payer MEDICARE, BC ==
--- NOTE | 2020-10-20 09:14 | NUR ---
PT AMBULATES TO ROOM WITH MINIMAL DIZZINESS. PT APPEARS TO BE FEELING BETTER.
[2020-10-20] MEDS ORDERED: SOLU-MEDROL1000 M1 IV (09:16)
== END 2020-10-20 09:40 | disposition home or self-care (01) ==
LOC: ATC 08:53
DX: G35 Multiple sclerosis (principal)
CPT/HCPCS: 96365; J1642; J2930

== ENCOUNTER 2020-10-21 08:47 | Day surgery (SDC) | payer MEDICARE, BC ==
[~2020-10-21 08:47] MED LIST changes: +SOLU-MEDROL1000 M1 IV
== END 2020-10-21 09:35 | disposition home or self-care (01) ==
LOC: ATC 08:47
DX: G35 Multiple sclerosis (principal); Z88.0 Allergy status to penicillin
CPT/HCPCS: 96365; J1642; J2930

== ENCOUNTER 2020-11-16 01:04 | Day surgery (SDC) | payer MEDICARE, BC | END 2020-11-16 22:46 | disposition home or self-care (01) | LOC: ATC 01:04 | DX: G35 Multiple sclerosis (principal); Z88.0 Allergy status to penicillin; Z87.440 Personal history of urinary (tract) infections ==

== ENCOUNTER 2020-12-19 01:54 | Day surgery (SDC) | payer MEDICARE, BC | END 2020-12-19 16:20 | disposition home or self-care (01) | LOC: ATC 01:54 | DX: G35 Multiple sclerosis (principal) | CPT/HCPCS: 96365; J1642; J2323; J7050 ==

== ENCOUNTER → 2021-02-22 | Outpatient (CLI) | payer MEDICARE, BC | END | disposition home or self-care (01) | LOC: LAB 18:00 → LAB SHORT 18:00 | DX: H16.002 Unspecified corneal ulcer, left eye (principal) | CPT/HCPCS: 87070; 87077; 87186; 87205 ==

== ENCOUNTER 2021-03-15 21:51 | Emergency (ER) | payer MEDICARE, BC ==
[~2021-03-15] VITALS: Ht 182.9 cm; Wt 161.9 kg
[2021-03-16 01:26] LABS: BASOPHILS ABSOLUTE AUTO 0.06 K/mm3 (0.00-0.23); BASOPHILS PERCENT AUTO 1 % (0-2); EOSINOPHILS ABSOLUTE AUTO 0.57 K/mm3 (0.00-0.68); EOSINOPHILS PERCENT AUTO 7 % (0-6); Hematocrit 37.7 % (33.0-51.0); Hemoglobin 11.5 g/dL (11.5-16.0); IMMATURE GRAN ABSOLUTE AUTO 0.05 K/mm3 (0.00-0.10); IMMATURE GRAN PERCENT AUTO 1 % (0-1); LYMPHOCYTES ABSOLUTE AUTO 1.76 K/mm3 (0.84-5.20); LYMPHOCYTES PERCENT AUTO 22 % (21-46); MONOCYTES ABSOLUTE AUTO 0.65 K/mm3 (0.16-1.47); MONOCYTES PERCENT AUTO 8 % (4-13); Mean Corpuscular HGB 22.2 pg (26.0-34.0); Mean Corpuscular HGB Conc 30.5 g/dL (31.5-36.5); Mean Corpuscular Volume 73 fL (80-100); Mean Platelet Volume 10.4 fL (9.1-12.4); NEUTROPHILS ABSOLUTE AUTO 5.11 K/mm3 (1.96-9.15); NEUTROPHILS PERCENT AUTO 62 % (41-73); Platelet Count 294 K/mm3 (150-400); RDW Coefficient Variation 16.2 % (11.7-14.2); RDW Standard Deviation 41.3 fL (35.1-46.3); Red Blood Cell Count 5.18 M/mm3 (3.80-5.20)
[2021-03-16 01:38] LABS: Alanine Aminotransfer (ALT/SGP 80 U/L (12-78); Albumin, Blood 3.6 g/dL (3.4-5.0); Albumin/Globulin Ratio 0.8 (0.8-1.8); Alk Phos 134 U/L (50-136); Anion Gap 6 mmol/L (6-16); Aspartate Aminotrans (AST/SGOT 42 U/L (12-37); Bilirubin, Total 0.4 mg/dL (0.1-1.0); Blood Urea Nitrogen 15 mg/dL (8-24); Bun/Creatinine Ratio 16.7 (12.0-20.0); CO2, Blood 25 mmol/L (21-32); Calcium, Blood 9.3 mg/dL (8.5-10.1); Chloride, Blood 103 mmol/L (98-108); Globulin, Blood 4.3 g/dL (2.2-4.0); Glomerular Filtration Rate >60 (60-); Glucose, Blood 117 mg/dL (70-99); Potassium, Blood 3.4 mmol/L (3.5-5.5); Sodium, Blood 134 mmol/L (136-145); Total Protein, Blood 7.9 g/dL (6.4-8.2)
[2021-03-16 04:22] LABS: Source, Urine Clean Catch
[2021-03-16 04:24] LABS: Appearance, Urine Clear (Clear); Blood, Urine Neg (Neg); Color, Urine Amber (P-Yellow); Glucose Qualitative, Urine Neg (Neg); Ketones, Urine 3+ (Neg); Leukocyte Esterase, Urine Neg (Neg); Nitrite, Urine Neg (Neg); Protein, Urine 2+ (Neg); Specific Gravity, Urine 1.025 (1.003-1.022); Urobilinogen, Urine 1+ (Normal)
[2021-03-16 04:26] LABS: Bilirubin, Urine 1+ (Neg)
[2021-03-16 04:31] LABS: Amorphous Light (0-Heavy); Bacteria Few /hpf; Red Blood Cells, Urine 0-2 /hpf (0-2); White Blood Cells, Urine 0-2 /hpf (0-5)
[2021-03-16 04:32] LABS: Mucus Light (0-Heavy); Squamous Epithelial Cells Few /hpf (Few)
== END 2021-03-16 06:00 | disposition home or self-care (01) ==
LOC: ER 21:51
PROVIDERS: Student in an Organized Health Care Education/Training Program
DX: G35 Multiple sclerosis (principal); Z88.0 Allergy status to penicillin; Z79.899 Other long term (current) drug therapy; Z79.52 Long term (current) use of systemic steroids
CPT/HCPCS: 51701; 80053; 81001; 85025; 96365; 96366; 96375; 99284-25; J1885; J2930; J7030

== ENCOUNTER 2021-03-16 18:49 | Emergency (ER) | payer MEDICARE, BC ==
[~2021-03-16] VITALS: Ht 182.9 cm; Wt 121.1 kg
== END 2021-03-16 22:20 | disposition home or self-care (01) ==
LOC: ER 18:49
DX: G35 Multiple sclerosis (principal); Z88.0 Allergy status to penicillin; Z79.899 Other long term (current) drug therapy
CPT/HCPCS: 36415; 96374; 99281-25; J2930

== ENCOUNTER 2021-03-21 11:29 | Emergency (ER) | payer MEDICARE, BC ==
[~2021-03-21] VITALS: Ht 182.9 cm; Wt 170.1 kg
[2021-03-21] MEDS ORDERED: Crutch1 EACH MISC (14:30)
[2021-03-21] MEDS ORDERED: Norco 5-325 Ta1 EACH PO (14:30)
== END 2021-03-21 14:45 | disposition home or self-care (01) ==
LOC: ER 11:29
DX: S82.831A Other fracture of upper and lower end of right fibula, initial encounter for closed fracture (principal); Z88.0 Allergy status to penicillin; Z79.899 Other long term (current) drug therapy; W19.XXXA Unspecified fall, initial encounter
CPT/HCPCS: 29515; 73610; 96372; 99283-25; A9270; J3010

== ENCOUNTER 2021-04-11 01:18 | Day surgery (SDC) | payer MEDICARE, BC ==
[~2021-04-11 01:18] MED LIST changes: +Crutch1 EACH MISC; +Norco 5-325 Ta1 EACH PO
== END 2021-04-11 16:15 | disposition home or self-care (01) ==
LOC: ATC 01:18
DX: G35 Multiple sclerosis (principal); Z88.0 Allergy status to penicillin; Z77.22 Contact with and (suspected) exposure to environmental tobacco smoke (acute) (chronic)
CPT/HCPCS: 96365; J1642; J2323; J7050

== ENCOUNTER 2021-10-14 00:25 | Day surgery (SDC) | payer MEDICARE, BC ==
[~2021-10-14] VITALS: Wt 170.9 kg
== END 2021-10-14 11:43 | disposition home or self-care (01) ==
LOC: ATC 00:25
DX: G35 Multiple sclerosis (principal)
CPT/HCPCS: 96365; A9270; J1200; J1642; J1720; J2323; J7040

== ENCOUNTER 2021-10-25 09:53 | Day surgery (SDC) | payer MEDICARE, BC | END 2021-10-25 15:20 | disposition home or self-care (01) | LOC: ATC 09:53 | DX: G35 Multiple sclerosis (principal); Z88.0 Allergy status to penicillin; Z90.49 Acquired absence of other specified parts of digestive tract | CPT/HCPCS: J1642; J2930 ==

== ENCOUNTER 2021-10-26 13:54 | Day surgery (SDC) | payer MEDICARE, BC | END 2021-10-26 14:59 | disposition home or self-care (01) | LOC: ATC 13:54 | DX: G35 Multiple sclerosis (principal) | CPT/HCPCS: J1642; J2930 ==

== ENCOUNTER 2021-12-11 01:58 | Day surgery (SDC) | payer MEDICARE, BC ==
[2021-12-11 16:37] LABS: Albumin, Blood 3.5 g/dL (3.4-5.0); Bilirubin, Total 0.3 mg/dL (0.1-1.0); Bun/Creatinine Ratio 12.2 (12.0-20.0); Creatinine, Blood 0.9 mg/dL (0.40-1.00); Globulin, Blood 3.6 g/dL (2.2-4.0); Potassium, Blood 3.7 mmol/L (3.5-5.5); Total Protein, Blood 7.1 g/dL (6.4-8.2)
[2021-12-12 08:10] LABS: IMMUNOGLOBULIN G, QN, SERUM 1258 mg/dL (586-1602); IMMUNOGLOBULIN M, QN, SERUM 78 mg/dL (26-217)
== END 2021-12-11 17:10 | disposition home or self-care (01) ==
LOC: ATC 01:58
PROVIDERS: Psychiatry & Neurology Neurology with Special Qualifications in Child Neurology
DX: G35 Multiple sclerosis (principal)
CPT/HCPCS: 80053; 82306; 82784; 96365; A9270; J1642; J2323; J7040

== ENCOUNTER 2022-03-11 03:51 | Day surgery (SDC) | payer MEDICARE, BC ==
[~2022-03-11 03:51] MED LIST changes: +OCUFLOX510 RIGHTEYE; +Percocet 5-3251 EACH PO
== END 2022-03-11 16:40 | disposition home or self-care (01) ==
LOC: ATC 03:51
DX: G35 Multiple sclerosis (principal); Z88.0 Allergy status to penicillin
CPT/HCPCS: J1642; J2323; J7040

== ENCOUNTER 2022-04-24 01:10 | Day surgery (SDC) | payer MEDICARE, BC ==
[~2022-04-24] VITALS: Wt 162.4 kg
--- NOTE | 2022-04-24 09:52 | NUR ---
PT HANDED PO MEDS AND PT REFUSED SO THEY WERE THROWN AWAY
== END 2022-04-24 10:58 | disposition home or self-care (01) ==
LOC: ATC 01:10
DX: G35 Multiple sclerosis (principal)
CPT/HCPCS: 96365; A9270; J1642; J2323; J7050

== ENCOUNTER 2022-04-28 10:58 | Emergency (ER) | payer MEDICARE, BC ==
[~2022-04-28] VITALS: Ht 182.9 cm; Wt 154.2 kg
[2022-04-28 12:06] LABS: BASOPHILS ABSOLUTE AUTO 0.09 K/mm3 (0.00-0.23); BASOPHILS PERCENT AUTO 1 % (0-2); EOSINOPHILS ABSOLUTE AUTO 0.44 K/mm3 (0.00-0.68); EOSINOPHILS PERCENT AUTO 6 % (0-6); Hematocrit 39.6 % (33.0-51.0); Hemoglobin 12.9 g/dL (11.5-16.0); IMMATURE GRAN ABSOLUTE AUTO 0.05 K/mm3 (0.00-0.10); IMMATURE GRAN PERCENT AUTO 1 % (0-1); LYMPHOCYTES ABSOLUTE AUTO 2.89 K/mm3 (0.84-5.20); LYMPHOCYTES PERCENT AUTO 36 % (21-46); MONOCYTES ABSOLUTE AUTO 0.64 K/mm3 (0.16-1.47); MONOCYTES PERCENT AUTO 8 % (4-13); Mean Corpuscular HGB Conc 32.6 g/dL (31.5-36.5); Mean Corpuscular Volume 80 fL (80-100); Mean Platelet Volume 10.1 fL (9.1-12.4); NEUTROPHILS ABSOLUTE AUTO 3.87 K/mm3 (1.96-9.15); NEUTROPHILS PERCENT AUTO 49 % (41-73); NRBC ABSOLUTE 0.04 K/mm3 (0.00-0.02); NRBC Auto 0.5 /100 WBC (0.0-0.2); Platelet Count 241 K/mm3 (150-400); RDW Coefficient Variation 16.1 % (11.7-14.2); RDW Standard Deviation 46.2 fL (35.1-46.3); Red Blood Cell Count 4.97 M/mm3 (3.80-5.20); White Blood Cell Count 7.98 K/mm3 (4.00-11.30)
[2022-04-28 12:24] LABS: Albumin, Blood 3.6 g/dL (3.4-5.0); Albumin/Globulin Ratio 0.9 (0.8-1.8); Bilirubin, Total 0.4 mg/dL (0.1-1.0); Bun/Creatinine Ratio 7.8 (12.0-20.0); Creatinine, Blood 0.9 mg/dL (0.40-1.00); Globulin, Blood 4.1 g/dL (2.2-4.0); Potassium, Blood 3.9 mmol/L (3.5-5.5); Total Protein, Blood 7.7 g/dL (6.4-8.2)
== END 2022-04-28 19:20 | disposition home or self-care (01) ==
LOC: ER 10:58
PROVIDERS: Physician Assistant
DX: G35 Multiple sclerosis (principal); Z88.0 Allergy status to penicillin; Z79.899 Other long term (current) drug therapy
CPT/HCPCS: 36415; 80053; 85025; A9270; J2930

== ENCOUNTER 2022-04-29 09:47 | Day surgery (SDC) | payer MEDICARE, BC | END 2022-04-29 16:09 | disposition home or self-care (01) | LOC: ATC 09:47 | DX: G35 Multiple sclerosis (principal) | CPT/HCPCS: 96365; J1642; J2930 ==

== ENCOUNTER 2022-04-30 00:51 | Day surgery (SDC) | payer MEDICARE, BC | END 2022-04-30 15:10 | disposition home or self-care (01) | LOC: ATC 00:51 | DX: G35 Multiple sclerosis (principal) | CPT/HCPCS: 96365; J1642; J2930 ==

== ENCOUNTER 2022-05-01 10:39 | Emergency (ER) | payer MEDICARE, BC ==
[~2022-05-01] VITALS: Ht 182.9 cm; Wt 145.2 kg
== END 2022-05-01 15:06 | disposition home or self-care (01) ==
LOC: ER 10:39
DX: H53.2 Diplopia (principal); G35 Multiple sclerosis; Z88.0 Allergy status to penicillin; Z79.899 Other long term (current) drug therapy
CPT/HCPCS: A9270

== ENCOUNTER 2022-05-29 02:35 | Day surgery (SDC) | payer MEDICARE, BC | END 2022-05-29 11:22 | disposition home or self-care (01) | LOC: ATC 02:35 | DX: G35 Multiple sclerosis (principal) | CPT/HCPCS: 96365; J1642; J2323; J7040 ==

== ENCOUNTER 2022-08-22 09:06 | Day surgery (SDC) | payer MEDICARE, BC ==
[2022-08-22] VITALS (12 sets, daily range): BP systolic 117–156; BP diastolic 64–99
[~2022-08-22] VITALS: Ht 177.8 cm; Wt 158.9 kg
[~2022-08-22 09:06] MED LIST changes: +TIZA4 PO; -Tizanidine HCl2 MG
--- NOTE | 2022-08-22 12:26 | NUR ---
REPORT RECEIVED FROM RYAN COYLE. VSS. PT ABLE TO REPOSITION SELF IN BED. PT REQUESTING PO FLUIDS AND FOOD AND TOLERATING THEM WELL. PT DENIES PAIN OR NAUSEA AT THIS TIME. PT DRESSING C/D/I WITHOUT DRAINAGE, REDNESS, OR SWELLING.
--- NOTE | 2022-08-22 13:11 | NUR ---
Patient up to Ambulate independently. Gait steady and consistent with pt baseline. Discharge instructions reviewed with patient. Patient verbalizes understanding. Copy given to patient to take home. Dressing to procedure site clean, dry, intact with no visible drainage, swelling, erythema or bruising noted. Patient States Post-Procedure ride home has been arranged. Discharged via wheelchair to private car for ride home. PT BELONGINGS RETURNED TO PT.
[2022-08-26] MEDS ORDERED: AMPYRA10 MG PO (15:17)
== END 2022-08-22 22:58 | disposition home or self-care (01) ==
LOC: ORSCMMR 09:06 → ORD 10:30 → ORSCMMR 10:30
PROVIDERS: Surgery
PROC: 0JPT0WZ Removal of Totally Implantable Vascular Access Device from Trunk Subcutaneous Tissue and Fascia, Open Approach (ICD-10-PCS; principal; 2022-08-22 10:30)
PROC: 05PY03Z Removal of Infusion Device from Upper Vein, Open Approach (ICD-10-PCS; principal; 2022-08-22 10:30)
PROC: B543ZZA Ultrasonography of Right Jugular Veins, Guidance (ICD-10-PCS; principal; 2022-08-22 10:30)
PROC: 05HM33Z Insertion of Infusion Device into Right Internal Jugular Vein, Percutaneous Approach (ICD-10-PCS; principal; 2022-08-22 10:30)
PROC: 0JH63WZ Insertion of Totally Implantable Vascular Access Device into Chest Subcutaneous Tissue and Fascia, Percutaneous Approach (ICD-10-PCS; principal; 2022-08-22 10:30)
DX: G35 Multiple sclerosis (principal)
CPT/HCPCS: 77001; C1788; J0690; J1100; J1642; J2250; J2405; J2704; J3010; J7120

== ENCOUNTER 2022-09-23 01:35 | Day surgery (SDC) | payer MEDICARE, BC ==
[~2022-09-23 01:35] MED LIST changes: +AMPYRA10 MG PO
== END 2022-09-23 22:48 | disposition home or self-care (01) ==
LOC: ATC 01:35
DX: G35 Multiple sclerosis (principal)
CPT/HCPCS: A9270; J1642; J7050

== ENCOUNTER 2022-09-26 02:41 | Day surgery (SDC) | payer MEDICARE, BC ==
[2022-09-26 14:02] VITALS: BP 137/66
== END 2022-09-26 16:01 | disposition home or self-care (01) ==
LOC: ATC 02:41
DX: G35 Multiple sclerosis (principal)
CPT/HCPCS: 96365; J1642; J2323; J7050

== ENCOUNTER 2022-10-09 03:34 | Day surgery (SDC) | payer MEDICARE, BC ==
[2022-10-09 13:42] VITALS: BP 142/98
== END 2022-10-09 14:24 | disposition home or self-care (01) ==
LOC: ATC 03:34
DX: G35 Multiple sclerosis (principal); Z88.0 Allergy status to penicillin; Z79.899 Other long term (current) drug therapy
CPT/HCPCS: 96365; J1642; J2930

== ENCOUNTER 2022-10-10 02:45 | Day surgery (SDC) | payer MEDICARE, BC ==
[2022-10-10 15:14] VITALS: BP 155/100
== END 2022-10-10 15:49 | disposition home or self-care (01) ==
LOC: ATC 02:45
DX: G35 Multiple sclerosis (principal)
CPT/HCPCS: 96365; J1642; J2930

== ENCOUNTER 2022-12-06 19:00 | Emergency (ER) | payer MEDICARE, BC ==
[~2022-12-06] VITALS: Ht 182.9 cm; Wt 90.7 kg
[2022-12-06 19:36] VITALS: BP 179/98
[2022-12-06 20:11] LABS: BASOPHILS ABSOLUTE AUTO 0.05 K/mm3 (0.00-0.23); BASOPHILS PERCENT AUTO 1 % (0-2); EOSINOPHILS ABSOLUTE AUTO 0.24 K/mm3 (0.00-0.68); EOSINOPHILS PERCENT AUTO 3 % (0-6); Hematocrit 38.4 % (33.0-51.0); Hemoglobin 12.9 g/dL (11.5-16.0); IMMATURE GRAN PERCENT AUTO 1 % (0-1); LYMPHOCYTES ABSOLUTE AUTO 3.34 K/mm3 (0.84-5.20); LYMPHOCYTES PERCENT AUTO 41 % (21-46); MONOCYTES ABSOLUTE AUTO 0.58 K/mm3 (0.16-1.47); MONOCYTES PERCENT AUTO 7 % (4-13); Mean Corpuscular HGB 28.2 pg (26.0-34.0); Mean Corpuscular HGB Conc 33.6 g/dL (31.5-36.5); Mean Corpuscular Volume 84 fL (80-100); Mean Platelet Volume 10.7 fL (9.1-12.4); NEUTROPHILS ABSOLUTE AUTO 3.83 K/mm3 (1.96-9.15); NEUTROPHILS PERCENT AUTO 47 % (41-73); NRBC ABSOLUTE 0.05 K/mm3 (0.00-0.02); NRBC Auto 0.6 /100 WBC (0.0-0.2); Platelet Count 293 K/mm3 (150-400); RDW Standard Deviation 49.4 fL (35.1-46.3); Red Blood Cell Count 4.58 M/mm3 (3.80-5.20); White Blood Cell Count 8.14 K/mm3 (4.00-11.30)
[2022-12-06 20:44] LABS: Albumin, Blood 3.9 g/dL (3.4-5.0); Albumin/Globulin Ratio 1.1 (0.8-1.8); Bilirubin, Total 0.6 mg/dL (0.1-1.0); Creatinine, Blood 0.64 mg/dL (0.40-1.00); Globulin, Blood 3.5 g/dL (2.2-4.0); Potassium, Blood 3.2 mmol/L (3.5-5.5); Total Protein, Blood 7.4 g/dL (6.4-8.2)
== END 2022-12-06 23:06 | disposition home or self-care (01) ==
LOC: ER 19:00
PROVIDERS: Student in an Organized Health Care Education/Training Program
DX: G35 Multiple sclerosis (principal); Z88.0 Allergy status to penicillin; Z79.899 Other long term (current) drug therapy
CPT/HCPCS: 80053; 85025; 96365; 99281-25; J2930

== ENCOUNTER 2022-12-08 11:58 | Emergency (ER) | payer MEDICARE, BC ==
[~2022-12-08] VITALS: Ht 180.3 cm; Wt 141.5 kg
[2022-12-08 12:10] VITALS: BP 134/95
== END 2022-12-08 13:38 | disposition home or self-care (01) ==
LOC: ER 11:58
DX: G35 Multiple sclerosis (principal); Z88.0 Allergy status to penicillin; Z79.899 Other long term (current) drug therapy
CPT/HCPCS: 96365; 99281-25; J2930

== ENCOUNTER 2022-12-09 01:48 | Day surgery (SDC) | payer MEDICARE, BC ==
[2022-12-09 09:48] VITALS: BP 157/89
== END 2022-12-09 10:26 | disposition home or self-care (01) ==
LOC: ATC 01:48
DX: G35 Multiple sclerosis (principal)
CPT/HCPCS: 96365; J2930

== ENCOUNTER 2023-01-13 11:25 | Day surgery (SDC) | payer MEDICARE, BC ==
[2023-01-13 15:35] VITALS: BP 135/92
== END 2023-01-13 17:15 | disposition home or self-care (01) ==
LOC: ATC 11:25
DX: G35 Multiple sclerosis (principal); Z88.0 Allergy status to penicillin
CPT/HCPCS: 96365; J1642; J2323; J7050

== ENCOUNTER 2023-01-16 11:55 | Emergency (ER) | payer MEDICARE, BC ==
[~2023-01-16] VITALS: Ht 180.3 cm; Wt 136.1 kg
[2023-01-16 12:00] VITALS: BP 152/88
== END 2023-01-16 14:33 | disposition home or self-care (01) ==
LOC: ER 11:55
DX: G35 Multiple sclerosis (principal); M79.661 Pain in right lower leg; R51.9 Headache, unspecified; W19.XXXA Unspecified fall, initial encounter; Z88.0 Allergy status to penicillin; Z79.899 Other long term (current) drug therapy
CPT/HCPCS: 70450; 73590; 96365; 99284-25; J2930

== ENCOUNTER 2023-01-17 02:44 | Day surgery (SDC) | payer MEDICARE, BC ==
[2023-01-17 15:59] VITALS: BP 126/85
== END 2023-01-17 16:38 | disposition home or self-care (01) ==
LOC: ATC 02:44
DX: G35 Multiple sclerosis (principal); Z88.0 Allergy status to penicillin
CPT/HCPCS: 96365; J1642; J2930

== ENCOUNTER 2023-01-18 03:16 | Day surgery (SDC) | payer MEDICARE, BC ==
[2023-01-18 14:16] VITALS: BP 126/84
== END 2023-01-18 14:45 | disposition home or self-care (01) ==
LOC: ATC 03:16
DX: G35 Multiple sclerosis (principal); Z88.0 Allergy status to penicillin
CPT/HCPCS: 96365; J1642; J2930

== ENCOUNTER 2023-02-17 01:42 | Day surgery (SDC) | payer MEDICARE, BC ==
[2023-02-17 08:27] VITALS: BP 124/72
--- NOTE | 2023-02-17 11:50 | NUR ---
KAELYN PRE-INFUSION CHECKLIST FAXED TO [facility]
== END 2023-02-17 10:35 | disposition home or self-care (01) ==
LOC: ATC 01:42
DX: G35 Multiple sclerosis (principal); Z88.0 Allergy status to penicillin
CPT/HCPCS: 96365; 96366; A9270; J1642; J2323; J7050

== ENCOUNTER 2023-04-09 01:06 | Day surgery (SDC) | payer MEDICARE, BC ==
--- NOTE | 2023-04-03 09:59 | NUR ---
PT CANCELED HER APPOINTMENT FOR TODAY.
[2023-04-09 10:17] VITALS: BP 122/76
== END 2023-04-09 11:35 | disposition home or self-care (01) ==
LOC: ATC 01:06
DX: G35 Multiple sclerosis (principal); Z88.0 Allergy status to penicillin; Z79.899 Other long term (current) drug therapy
CPT/HCPCS: 96365; J1642; J2323; J7050

== ENCOUNTER 2023-04-24 20:59 | Inpatient (IN) | payer MEDICARE, BC ==
[~2023-04-24] VITALS: Ht 180.3 cm; Wt 132.3 kg
[2023-04-24 21:42] LABS: BASOPHILS ABSOLUTE AUTO 0.07 K/mm3 (0.00-0.23); BASOPHILS PERCENT AUTO 1 % (0-2); EOSINOPHILS ABSOLUTE AUTO 0.37 K/mm3 (0.00-0.68); EOSINOPHILS PERCENT AUTO 4 % (0-6); Hematocrit 41.1 % (33.0-51.0); Hemoglobin 13.8 g/dL (11.5-16.0); IMMATURE GRAN ABSOLUTE AUTO 0.05 K/mm3 (0.00-0.10); IMMATURE GRAN PERCENT AUTO 1 % (0-1); LYMPHOCYTES ABSOLUTE AUTO 3.53 K/mm3 (0.84-5.20); LYMPHOCYTES PERCENT AUTO 41 % (21-46); MONOCYTES ABSOLUTE AUTO 0.52 K/mm3 (0.16-1.47); MONOCYTES PERCENT AUTO 6 % (4-13); Mean Corpuscular HGB 26.3 pg (26.0-34.0); Mean Corpuscular HGB Conc 33.6 g/dL (31.5-36.5); Mean Corpuscular Volume 78 fL (80-100); Mean Platelet Volume 10.2 fL (9.1-12.4); NEUTROPHILS ABSOLUTE AUTO 3.98 K/mm3 (1.96-9.15); NEUTROPHILS PERCENT AUTO 47 % (41-73); NRBC ABSOLUTE 0.06 K/mm3 (0.00-0.02); NRBC Auto 0.7 /100 WBC (0.0-0.2); Platelet Count 261 K/mm3 (150-400); RDW Coefficient Variation 14.6 % (11.7-14.2); RDW Standard Deviation 41.5 fL (35.1-46.3); Red Blood Cell Count 5.24 M/mm3 (3.80-5.20); White Blood Cell Count 8.52 K/mm3 (4.00-11.30)
[2023-04-24 21:59] LABS: Albumin, Blood 3.7 g/dL (3.4-5.0); Creatinine, Blood 0.8 mg/dL (0.40-1.00); Globulin, Blood 3.6 g/dL (2.2-4.0); Potassium, Blood 3.5 mmol/L (3.5-5.5); Total Protein, Blood 7.3 g/dL (6.4-8.2)
[2023-04-25 00:32] LABS: Source, Urine Clean Catch
[2023-04-25 00:34] LABS: Blood, Urine 2+ (Neg); Glucose Qualitative, Urine Neg (Neg); Ketones, Urine 4+ (Neg); Leukocyte Esterase, Urine 3+ (Neg); Nitrite, Urine Neg (Neg); Protein, Urine 2+ (Neg); Specific Gravity, Urine 1.025 (1.003-1.022); Urobilinogen, Urine 2+ (Normal)
[2023-04-25 00:52] LABS: Appearance, Urine Cloudy (Clear); Bacteria Many /hpf; Bilirubin, Urine 1+ (Neg); Color, Urine Yellow (P-Yellow); Red Blood Cells, Urine 0-2 /hpf (0-2); Squamous Epithelial Cells Mod /hpf (Few); White Blood Cells, Urine TNTC /hpf (0-5)
[2023-04-25 00:53] LABS: Amorphous Mod (0-Heavy); Mucus Heavy (0-Heavy)
[2023-04-25] MEDS ORDERED: CEFD300 PO (02:28)
[2023-04-25 03:30] VITALS: BP 119/67
[2023-04-25] MEDS ORDERED: OCREVUS (04:46)
[2023-04-25 04:49] LABS: BASOPHILS ABSOLUTE AUTO 0.08 K/mm3 (0.00-0.23); BASOPHILS PERCENT AUTO 1 % (0-2); EOSINOPHILS ABSOLUTE AUTO 0.23 K/mm3 (0.00-0.68); EOSINOPHILS PERCENT AUTO 3 % (0-6); Hemoglobin 13.7 g/dL (11.5-16.0); IMMATURE GRAN ABSOLUTE AUTO 0.05 K/mm3 (0.00-0.10); IMMATURE GRAN PERCENT AUTO 1 % (0-1); LYMPHOCYTES ABSOLUTE AUTO 2.59 K/mm3 (0.84-5.20); LYMPHOCYTES PERCENT AUTO 33 % (21-46); MONOCYTES ABSOLUTE AUTO 0.28 K/mm3 (0.16-1.47); MONOCYTES PERCENT AUTO 4 % (4-13); Mean Corpuscular HGB 26.1 pg (26.0-34.0); Mean Corpuscular HGB Conc 33.4 g/dL (31.5-36.5); Mean Corpuscular Volume 78 fL (80-100); Mean Platelet Volume 10.2 fL (9.1-12.4); NEUTROPHILS PERCENT AUTO 59 % (41-73); NRBC ABSOLUTE 0.03 K/mm3 (0.00-0.02); NRBC Auto 0.4 /100 WBC (0.0-0.2); Platelet Count 254 K/mm3 (150-400); RDW Coefficient Variation 14.5 % (11.7-14.2); RDW Standard Deviation 40.5 fL (35.1-46.3); Red Blood Cell Count 5.24 M/mm3 (3.80-5.20); White Blood Cell Count 7.93 K/mm3 (4.00-11.30)
[2023-04-25 05:16] LABS: Albumin, Blood 3.9 g/dL (3.4-5.0); Albumin/Globulin Ratio 1.1 (0.8-1.8); Bilirubin, Total 1.3 mg/dL (0.1-1.0); Bun/Creatinine Ratio 15.5 (12.0-20.0); Calcium, Blood 9.1 mg/dL (8.5-10.1); Creatinine, Blood 0.84 mg/dL (0.40-1.00); Globulin, Blood 3.7 g/dL (2.2-4.0); Potassium, Blood 3.6 mmol/L (3.5-5.5); Total Protein, Blood 7.6 g/dL (6.4-8.2)
--- NOTE | 2023-04-25 05:39 | NUR ---
PT ADMITTED TO ROOM PCU 19 FROM ED. REPORT RECEIVED AND CHART REVIEWED. PT ARRIVES TO ROOM AT 0400 THIS MORNING. PIVOT TRANSFERS TO BED FROM [facility]. PT VERBALIZES SHE HAS HAD MULTIPLE FALLS AT HOME. IS CURRENTLY TRANSITIONING FROM TSARBI IV INFUSIONS TO OCREVUS INFUSIONS FOR HER MULTIPLE SCLEROSIS. COMPLAINTS OF DYSURIA SECONDARY TO SPASMS. CURRENT UTI. 8/10 PAIN THAT IS GENERAL IN NATURE. DR YBARRA HAS COME TO ROOM AND EVALUATED PT. VERBAL ORDERS RECEIVED. WILL REVIEW PLAN OF CARE FOR THIS PT. AND WILL CONTINUE TO MONITOR AND REPORT OFF TO ONCOMING DAY SHIFT RN.
[2023-04-25 07:53] VITALS: BP 128/80
[2023-04-25 10:55] LABS: Source, Urine Straight Cath
[2023-04-25 11:09] LABS: Appearance, Urine Hazy (Clear); Blood, Urine 3+ (Neg); Color, Urine Yellow (P-Yellow); Glucose Qualitative, Urine Neg (Neg); Ketones, Urine 4+ (Neg); Leukocyte Esterase, Urine 1+ (Neg); Nitrite, Urine Pos (Neg); Protein, Urine 2+ (Neg); Specific Gravity, Urine 1.025 (1.003-1.022); Urobilinogen, Urine 2+ (Normal)
[2023-04-25 11:22] LABS: Bilirubin, Urine 1+ (Neg)
[2023-04-25 11:24] LABS: Bacteria Many /hpf
[2023-04-25 11:25] LABS: Squamous Epithelial Cells Few /hpf (Few); White Blood Cells, Urine 0-2 /hpf (0-5)
[2023-04-25 11:40] VITALS: BP 136/70
--- NOTE | 2023-04-25 15:36 | NUR ---
SHIFT SUMMARY: PATIENT IS A&OX4. VS ARE WNL AND IS ON RA. PATIENT HAS A HX OF MS IN WHICH HER SYMPTOMS INCLUDE VERTIGO, DOUBLE VISION, AND DIFFICULTY URINATING. PATIENT WAS STRAIGHT CATHED EARLIER THIS SHIFT FOR A MORE ACCURATE UA AND MICRO RESULTS. PATIENT IS TOLERATING SMALL AMOUNTS OF CLEAR LIQUIDS PO. PATIENTS MEDIPORT WAS ACCESSED PER DR. COPPOLA ORDERS IN WHICH HER IV FLUIDS ARE RUNNING IN. PATIENT CALLS APPROPRIATELY. SHE IS LAYING IN BED WITH A FRIEND AT BEDSIDE AND CALL LIGHT IN REACH.
[2023-04-25 16:35] VITALS: BP 133/91
[2023-04-25 19:46] VITALS: BP 127/74
[2023-04-26 05:17] VITALS: BP 130/79
--- NOTE | 2023-04-26 06:42 | NUR ---
SHIFT SUMMERY PT IS ALERT AND ORIENTED X4, VS HAVE BEEN WNL. SHE HAS HAD NO ACUTE DISTRESS OVERNIGHT. SHE HAS BEEN AFEBRILE, AND ABLE TO MAKE NEEDS KNOWN. NO ACUTE CHANGES TO PT PLAN OF CARE OVERNIGHT.
[2023-04-26 07:44] VITALS: BP 122/52
== END 2023-04-26 13:38 | disposition home or self-care (01) | DRG 60 ==
LOC: ER 20:59 → PCU 21:00 → ERHOLD 21:00 → PCU 04-25 04:00
PROVIDERS: Internal Medicine; Student in an Organized Health Care Education/Training Program; ADMIT Internal Medicine
DX: G35 Multiple sclerosis (principal); R13.10 Dysphagia, unspecified; G62.9 Polyneuropathy, unspecified; M62.838 Other muscle spasm; Z88.0 Allergy status to penicillin
CPT/HCPCS: 80053; 81001; 83880; 85025; 87086; 96365; 96372; 96374; 96375; 96376; 97110; 97162; 97530; 99285; A9270; G0378; J0696; J1650; J1885; J2405; J2930; J3010; J7030

== ENCOUNTER 2023-06-01 17:08 | Inpatient (IN) | payer MEDICARE, BC ==
[~2023-06-01] VITALS: Ht 180.3 cm; Wt 129.6 kg
[~2023-06-01 17:08] MED LIST changes: +CEFD300 PO; +OCREVUS
[2023-06-01 17:49] LABS: BASOPHILS ABSOLUTE AUTO 0.07 K/mm3 (0.00-0.23); BASOPHILS PERCENT AUTO 1 % (0-2); EOSINOPHILS ABSOLUTE AUTO 0.14 K/mm3 (0.00-0.68); EOSINOPHILS PERCENT AUTO 2 % (0-6); Hemoglobin 14.8 g/dL (11.5-16.0); IMMATURE GRAN ABSOLUTE AUTO 0.05 K/mm3 (0.00-0.10); IMMATURE GRAN PERCENT AUTO 1 % (0-1); LYMPHOCYTES ABSOLUTE AUTO 2.43 K/mm3 (0.84-5.20); LYMPHOCYTES PERCENT AUTO 26 % (21-46); MONOCYTES ABSOLUTE AUTO 0.78 K/mm3 (0.16-1.47); MONOCYTES PERCENT AUTO 8 % (4-13); Mean Corpuscular HGB 26.6 pg (26.0-34.0); Mean Corpuscular HGB Conc 32.9 g/dL (31.5-36.5); Mean Corpuscular Volume 81 fL (80-100); Mean Platelet Volume 10.4 fL (9.1-12.4); NEUTROPHILS ABSOLUTE AUTO 6.01 K/mm3 (1.96-9.15); NEUTROPHILS PERCENT AUTO 64 % (41-73); Platelet Count 283 K/mm3 (150-400); RDW Coefficient Variation 14.7 % (11.7-14.2); RDW Standard Deviation 42.9 fL (35.1-46.3); Red Blood Cell Count 5.56 M/mm3 (3.80-5.20); White Blood Cell Count 9.48 K/mm3 (4.00-11.30)
[2023-06-01 18:41] LABS: Albumin, Blood 4.3 g/dL (3.4-5.0); Albumin/Globulin Ratio 1.2 (0.8-1.8); Bun/Creatinine Ratio 16.6 (12.0-20.0); Calcium, Blood 9.7 mg/dL (8.5-10.1); Creatinine, Blood 0.73 mg/dL (0.40-1.00); Globulin, Blood 3.7 g/dL (2.2-4.0)
[2023-06-01 23:39] LABS: Source, Urine Clean Catch
[2023-06-01 23:42] LABS: Blood, Urine Neg (Neg); Glucose Qualitative, Urine Neg (Neg); Ketones, Urine 4+ (Neg); Leukocyte Esterase, Urine 1+ (Neg); Nitrite, Urine Neg (Neg); Protein, Urine 2+ (Neg); Specific Gravity, Urine 1.025 (1.003-1.022); Urobilinogen, Urine NORM (Normal)
[2023-06-01 23:48] LABS: Appearance, Urine Clear (Clear); Bilirubin, Urine 1+ (Neg); Color, Urine Yellow (P-Yellow)
[2023-06-01 23:55] VITALS: BP 136/82
[2023-06-02 00:15] LABS: Bacteria Many /hpf; Red Blood Cells, Urine Not Seen /hpf (0-2); Squamous Epithelial Cells Few /hpf (Few)
[2023-06-02 04:12] VITALS: BP 149/106
[2023-06-02 05:57] LABS: BASOPHILS ABSOLUTE AUTO 0.02 K/mm3 (0.00-0.23); BASOPHILS PERCENT AUTO 0 % (0-2); EOSINOPHILS PERCENT AUTO 0 % (0-6); IMMATURE GRAN ABSOLUTE AUTO 0.07 K/mm3 (0.00-0.10); IMMATURE GRAN PERCENT AUTO 1 % (0-1); LYMPHOCYTES ABSOLUTE AUTO 1.03 K/mm3 (0.84-5.20); LYMPHOCYTES PERCENT AUTO 15 % (21-46); MONOCYTES ABSOLUTE AUTO 0.06 K/mm3 (0.16-1.47); MONOCYTES PERCENT AUTO 1 % (4-13); Mean Corpuscular HGB 26.8 pg (26.0-34.0); Mean Corpuscular HGB Conc 33.3 g/dL (31.5-36.5); Mean Corpuscular Volume 80 fL (80-100); Mean Platelet Volume 10.2 fL (9.1-12.4); NEUTROPHILS ABSOLUTE AUTO 5.77 K/mm3 (1.96-9.15); NEUTROPHILS PERCENT AUTO 83 % (41-73); Platelet Count 238 K/mm3 (150-400); RDW Coefficient Variation 14.7 % (11.7-14.2); RDW Standard Deviation 43.2 fL (35.1-46.3); Red Blood Cell Count 5.23 M/mm3 (3.80-5.20); White Blood Cell Count 6.95 K/mm3 (4.00-11.30)
--- NOTE | 2023-06-02 06:11 | NUR ---
SHIFT SUMMARY PT ARRIVED TO ROOM 559 FROM ER AT 2358 VIA GURNEY. TRANSFERED TO HOSPITAL BED, STAND PIVOT, BUT VERY UNSTEADY. PT GETS VERTIGO AND BECOMES DIZZY WITH MINIMAL MOVEMENTS. NOOB THIS SHIFT. PT STATES SHE USES BOTH A FWW AND WHEELCHAIR BASELINE AT HOME, BUT CRAWLS ALOT BECAUSE SHE IS SO WEAK. WICKING SYSTEM IN PLACE DRAINING CLEAR YELLOW URINE, NO BM THIS SHIFT. BP ELEVATED 136/92, HR TACHY IN THE 90'S PER TELEMETRY, ON RA. PAIN 9/10, GENERALIZED, MEDICATED PER EMAR WITH NO EFFECT. PT HAS ADAT, NAUSEOUS WITH SALTINE CRACKERS. BED IN LOWEST POSITION, CALL LIGHT WITHIN REACH.
[2023-06-02 06:12] VITALS: BP 136/92
[2023-06-02 06:38] LABS: Albumin, Blood 3.9 g/dL (3.4-5.0); Bilirubin, Total 1.1 mg/dL (0.1-1.0); Bun/Creatinine Ratio 17.6 (12.0-20.0); Calcium, Blood 9.3 mg/dL (8.5-10.1); Creatinine, Blood 0.74 mg/dL (0.40-1.00); Globulin, Blood 3.9 g/dL (2.2-4.0); Potassium, Blood 3.6 mmol/L (3.5-5.5); Total Protein, Blood 7.8 g/dL (6.4-8.2)
[2023-06-02 07:48] VITALS: BP 140/82
[2023-06-02 15:35] VITALS: BP 125/67
--- NOTE | 2023-06-02 18:40 | NUR ---
SHIFT SUMMARY PT AOX4, BR AT THIS TIME. MEDICATED FOR PAIN PER THE EMAR, REPOSITIONED Q2. PURWICK IN PLACE AND PATENT. NO OTHER COMPLAINTS FROM THE PT AT THIS TIME. CALL LIGHT WITHIN REACH, BED IN THE LOWEST POSITION. WILL REPORT TO ONCOMING NURSE.
[2023-06-02 19:30] VITALS: BP 123/75
[2023-06-03 03:02] VITALS: BP 105/94
--- NOTE | 2023-06-03 06:44 | NUR ---
SHIFT SUMMARY 'BENNETT' IS A&OX4, PLEASANT, COOPERATIVE WITH CARES AND APPRECIATIVE. VSS ON RA. HR SR-SB @45-70 PER TELEMETRY. C/O GENERALIZED PAIN 01/11, MANAGED WITH MEDICATIONS PER EMAR. PT TOLERATING A REGULAR DIET, NO NAUSEA. WICKING SYSTEM DRAINING DARK YELLOW URINE. NO BM THIS SHIFT. NOOB. PT IS STILL EXPERIENCING VERTIGO AND DIZZINESS. BED IN LOWEST POSITION, CALL LIGHT WITHIN REACH.
[2023-06-03 07:24] VITALS: BP 123/75
--- NOTE | 2023-06-03 08:33 | NUR ---
NOTE: NOTIFIED BY TELE OF PT'S HR OF 40'S-MID 30'S. TELE STRIPS IN CHART. NOTIFIED PROVIDER, DR. OSHEA, NO NEW ORDERS AT THIS TIME. SHE SAID TO CONTINUE TO WATCH THE PT. PT STATES SHE FEELS NO CHANGES FROM HER BASELINE, SHE IS RESTING COMFORTABLY.
[2023-06-03 16:08] VITALS: BP 122/61
--- NOTE | 2023-06-03 17:49 | NUR ---
SHIFT SUMMARY PT AOX4, BR. MEDICATED FOR PAIN PER THE EMAR. SEE OTHER NOTE ABOUT TELE EVENTS EARLIER IN THE SHIFT. NO EVENTS SINCE THIS AM. [employer] PATENT AND IN PLACE. PT CALLS AND MAKES HER NEEDS KNOWN. FAMILY AT THE BS T/O THE SHIFT. CALL LIGHT WITHIN REACH, BED IN THE LOWEST POSITION. WILL REPORT TO ONCOMING NURSE.
[2023-06-03 20:00] VITALS: BP 147/79
[2023-06-04 02:55] VITALS: BP 140/89
--- NOTE | 2023-06-04 03:53 | NUR ---
RECEIVED CALL FROM [employer] STATING THAT PT'S HR HAD DROPPED TO 39 TWICE, BUT IS SUSTAINING IN THE 40'S. PT AWAKE AND ALERT, DENIES ANY CARDIAC SYMPTOMS. PER REPORT, BRADYCARDIC WHEN SLEEPING.
[2023-06-04 07:03] VITALS: BP 130/82
--- NOTE | 2023-06-04 07:44 | NUR ---
SHIFT SUMMARY: LATOYA IS A&OX4. VSS WITH BRADYCARIA DURING SLEEP, CONSISTENT WITH REPORT FROM PREVIOUS NIGHT'S RN. PT REMAINED ASYMPTOMATIC FROM THE BRADYCARDIA DURING THE NIGHT. SHE IS TOLERATING PO INTAKE WELL, IS ABLE TO MOVE AND REPOSITION HER UPPER BODY INDEPENDENTLY. PT IS INCONTINENT OF BLADDER, HAS NOT HAD A BOWEL MOVEMENT FOR SEVERAL DAYS. MEDIPORT ACCESSED, FLUIDS TKO. SHE IS LYING IN BED WITH THE CALL LIGHT IN REACH. REPORT WAS GIVEN TO TWISTING DEPARTMENT END FINDER RN.
[2023-06-04 09:18] LABS: Hematocrit 39.4 % (33.0-51.0); Hemoglobin 13.2 g/dL (11.5-16.0); Mean Corpuscular HGB 26.7 pg (26.0-34.0); Mean Corpuscular HGB Conc 33.5 g/dL (31.5-36.5); Mean Corpuscular Volume 80 fL (80-100); Mean Platelet Volume 10.2 fL (9.1-12.4); Platelet Count 227 K/mm3 (150-400); RDW Coefficient Variation 15.2 % (11.7-14.2); RDW Standard Deviation 43.8 fL (35.1-46.3); Red Blood Cell Count 4.95 M/mm3 (3.80-5.20); White Blood Cell Count 12.36 K/mm3 (4.00-11.30)
[2023-06-04 09:48] LABS: Bun/Creatinine Ratio 29.3 (12.0-20.0); Calcium, Blood 9.3 mg/dL (8.5-10.1); Creatinine, Blood 0.92 mg/dL (0.40-1.00); Potassium, Blood 3.5 mmol/L (3.5-5.5)
[2023-06-04 16:01] VITALS: BP 123/71
--- NOTE | 2023-06-04 19:45 | NUR ---
SHIFT SUMMARY: PATIENT DISCOURAGED WITH LACK OF IMPROVEMENT DURING THE DAY. PATIENT REPORTS THAT TYPICALLY SHE IS FEELING BETTER AFTER HER THIRD DOSE OF STEROIDS. PATIENT CONTINUES TO HAVE HIGH LEVELS OF PAIN. STARTED TO WORK ON TRANSITIONING PATIENT TO PO PAIN MEDICATIONS THIS EVENING WITH LIMITED SUCCESS. PATIENT WOULD LIKE TO SET HERSELF UP TO BE READY FOR DISCHARGE AND NOT RELIANT ON IV MEDICATIONS. PATIENT REPORTED IMPROVEMENT IN NAUSEA (ABLE TO EAT WITH VOMITING) AND IMPROVEMENT IN VERTIGO AND DOUBLE VISION. PATIENT ABLE TO FOLLOW COMMANDS WITH HER LEGS/FEET, BUT REPORTS THAT THEY CONTINUE TO BE UNCOORDINATED AT TIMES. PATIENT ABLE TO STAND TWICE AT THE BEDSIDE TODAY. PATIENT REQUESTED THAT WEIGHT BE TAKEN THIS EVENING. USING BED SCALE, RECEIVED A WEIGHT OF 134.4. THIS IS A GAIN OF ABOUT 15 LBS SINCE ADMISSION COMPARED TO THE ADMIT WEIGHT. PATIENT REPORTED FEELING EXTRA "FLUFFY" IN HER BODY. LUNG SOUNDS AND RESPIRATORY STATUS UNCHANGED. COMMUNICATED TO NOC RN TO DISCUSS WITH DAY RN TOMORROW.
[2023-06-04 19:54] VITALS: BP 142/87
[2023-06-05 04:03] VITALS: BP 143/99
--- NOTE | 2023-06-05 04:59 | NUR ---
END OF SHIFT SUMMARY PT A&O x4, VSS, AFEBRILE. PT ON RA, RESP RATE EVEN AND UNLABORED. PT C/O PAIN TO LOWER EXTREMITIES. PAIN MANAGED WITH PRN PO ZANAFLEX, PO PERCOCET AND IV MORPHINE. PT ALSO RECEIVED PRN IV ZOFRAN FOR NAUSEA, WHICH WAS EFFECTIVE. PUREWICK IN PLACE OVERNIGHT. PT PLEASANT AND COOPERATIVE WITH CARE PROVIDED. PT ABLE TO MAKE NEEDS KNOWN. CALL LIGHT WITHIN REACH, WCTM.
[2023-06-05 07:25] VITALS: BP 126/96
--- NOTE | 2023-06-05 19:25 | NUR ---
SHIFT SUMMARY- PT HAS HAD NO ACUTE CHANGE T/O THE SHIFT. PT WENT FOR MRI AT 1830 SO SHE WAS NOT PRESENT FOR BEDSIDE REPORT. PT HAS NEW MEDS ORDERED BY THE NEUROLOGIST, SHE HAS HAD EL OFF AND ON T/O THE DAY. PT WOULD LIKE TO AVOID IV PAIN MEDS IF POSSIBLE.
[2023-06-05 20:04] VITALS: BP 129/76
[2023-06-06] VITALS (7 sets, daily range): BP systolic 80–148; BP diastolic 50–92
--- NOTE | 2023-06-06 03:25 | NUR ---
SHIFT SUMMARY PT WAS DOWN FOR MRI AT START OF SHIFT. UPON RETURN PT WAS HAVING SOME DIZZINESS. PT WAS MEDICATED PER EMAR WITH MECLAZINE WITH GOOD RESULTS. PT DECLINED PAIN MEDS SINCE SHE WAS GETTING GABAPENTIN. PT SLEPT THROUGH MOST OF THE NIGHT. NO ACUTE CHANGES THIS SHIFT. PT PLEASANT AND TALKATIVE DURING WAKING TIMES. TELE WAS SINUS ABUNDIO AT 41, PT IN NO DISTRESS DURING THIS TIME OF SLEEP. PT REPORTS KNOWN HISTORY OF BRADYCARDIA DURING SLEEP. 06/06/23 PHYLLIS JOSE RN
--- NOTE | 2023-06-06 03:50 | NUR ---
TELEMETRY EVENT: ABUNDIO DOWN TO HR 33 SLEEPING AND BACK INTO THE 50'S WHEN AWAKE. WCTM.
--- NOTE | 2023-06-06 05:17 | NUR ---
HOISTING LABORER REPORTS HR MID 30'S. PATIENT NOTED SLEEPING AND WAKES UP TO VERBAL CONTACT. HR INTO 40'S AFTER CONVERSATION. TM.
--- NOTE | 2023-06-06 13:19 | NUR ---
FOOD PT HAS A PHOBIA OF HER FOOD TOUCHING. CALLED FOOD SERVICES TO ASK FOR EACH ONTRAY IN SEPERATE BOWLS OR A DIVIDED PLATE. MESSAGE LEFT. CARE ONGOING.
--- NOTE | 2023-06-06 17:09 | NUR ---
NOTE PT ALERT/ORIENTED. NO CHNAGE IN DIZZINESS. MECLAZINE MILDLY HELPFUL. THIS EVENING BP LOW FOR PT. HR 75 WHICH IS EELVATED FOR HER. TALKED WITH DR OSHEA ORDER FOR 1 LITER NS RECEIVED. SKIN WARM AND DRY. VOIDING PER ALBERTO. PT REALLY WANTS TO GO HOME. SHE ISN'T CONVINCED THOUGH THAT SHE CAN SUCCESSFULLY STAND AND TRANSFER WITH HER DIZZINESS. LESS SPASMS TODAY. CAER ONGOING.
--- NOTE | 2023-06-07 03:04 | NUR ---
SHIFT SUMMARY PT A&O X 4, DROWSY BUT WOKE TO NOISE IN HER ROOM OR TOUCH. PT REPORTING THAT SHE HAS FELT MORE TIRED THAN USUAL. PT EDUCATED THAT SHE HAS BEEN TAKING A FEW MEDICATIONS THAT COULD BE CONTRIBUTING TO SLEEPINESS SUCH PERCOCET AND MECLAZINE. PT DENIES WORSENING DIZZINESS BUT STATES IT IS STILL PRESENT. PT BP WAS RECHECKED 1 HOUR FOLLOWING ADMINISTRATION OF PERCOCET AND TIZANIDINE WITH READING OF 123/71. PT STILL REPORTING GENERALIZED BODY PAIN, MEDICATED WITH PERCOCET AND TIZANIDINE WITH GOOD RELIEF. PT DENIES N/V. PT PLEASANT AND TALKATIVE WHEN AWAKE, SLEPT MOST OF THE NIGHT. 06/07/23 PHYLLIS JOSE RN
[2023-06-07 04:15] VITALS: BP 126/72
[2023-06-07 05:24] LABS: Hematocrit 37.7 % (33.0-51.0); Hemoglobin 12.6 g/dL (11.5-16.0); Mean Corpuscular HGB 26.9 pg (26.0-34.0); Mean Corpuscular HGB Conc 33.4 g/dL (31.5-36.5); Mean Corpuscular Volume 81 fL (80-100); Platelet Count 161 K/mm3 (150-400); RDW Coefficient Variation 15.1 % (11.7-14.2); RDW Standard Deviation 44.4 fL (35.1-46.3); Red Blood Cell Count 4.68 M/mm3 (3.80-5.20); White Blood Cell Count 14.91 K/mm3 (4.00-11.30)
[2023-06-07 05:54] LABS: Bun/Creatinine Ratio 29.6 (12.0-20.0); Calcium, Blood 8.8 mg/dL (8.5-10.1); Creatinine, Blood 0.84 mg/dL (0.40-1.00)
[2023-06-07 07:30] VITALS: BP 124/80
--- NOTE | 2023-06-07 14:18 | NUR ---
ASSISTED TO STAND PT WAS ASSISTED TO STAND PER HER REQUEST. WHEN SITTING UP ON THE SIDE OF THE BED THE PT BECAME LIGHTHEADED AND DIZZY. THE PT ATTEMPTED TO STAND X2 BOTH TIMES BECAME VERY DIZZY AND UNSTEADY. ANTIVERT WAS GIVEN AT THIS TIME
[2023-06-07 15:07] VITALS: BP 116/71
--- NOTE | 2023-06-07 17:02 | NUR ---
PT IS A/OX4, PLEASANT AND COOPERATIVE. PT APPEARS TO BE BREATHING EASILY WITHOUT OXYGEN AT REST. THE PT ATTEMPTED TO STAND TODAY AND BECAME VERY DIZZY AND UNSTEADY. THE PT WAS GIVEN ANTIVERT X1 TODAY. PT WAS MEDICATED FOR NAUSEA X1 TODAY AND FOR PAIN X2 SO FAR THIS SHIFT. PT REPORTED PAIN IN HER LEGS AND HIPS. THE PTS GOAL THIS EVENINING TO SIT UP IN THE CHAIR FOR DINNER. PT USES THE CALL LIGHT APPROPRIATLY. BED IN THE LOW POSITION
[2023-06-07 19:47] VITALS: BP 115/69
[2023-06-08 02:36] VITALS: BP 116/84
--- NOTE | 2023-06-08 04:00 | NUR ---
SHIFT SUMMARY PT UP IN CHAIR AT START OF SHIFT FOR A FEW HOURS. PT REPORTING DECREASED DIZZINESS TODAY. PT MEDICATED FOR PAIN PER EMAR WITH OXY AND TIZANIDINE WITH GOOD RELIEF. PT LOOKING FORWARD TO GOING HOME. PT SLEPT THROUGH THE NIGHT. NO ACUTE CHANGES. 06/08/23 PHYLLIS JOSE RN
[2023-06-08 07:34] VITALS: BP 125/76
[2023-06-08 15:08] VITALS: BP 117/83
--- NOTE | 2023-06-08 16:36 | NUR ---
SHIFT SUMMARY: NO ACUTE EVENTS. NO LONGER DIZZY WHILE IN BED, BUT HAS SOME DIZZINESS WHEN GETTING UP TO CHAIR WHICH RESOLVES AFTER SITTING UP A FEW MINUTES. HAS CHRONIC GENERALIZED PAIN, MANAGED WITH PERCOCET. MEDIPORT DEACCESSED PATIENT C/O TENDERNESS AT SITE AND SHE THOUGHT SHE WOULD BE D/C HOME TODAY. BREATHING IS UNLABORED ON ROOM AIR. PUREWICK IN PLACE TO MANAGE URINE. GOT UP TO CHAIR THIS AFTERNOON.
[2023-06-08] MEDS ORDERED: GABA300 PO (17:08)
[2023-06-08] MEDS ORDERED: MECL25 PO (17:08)
[2023-06-08] MEDS ORDERED: Percocet 5-3251 EACH PO (17:09)
[2023-06-08] MEDS ORDERED: MIRALAX17 GM PO (17:10)
[2023-06-08] MEDS ORDERED: Prednisone10 MG PO (17:11)
== END 2023-06-08 17:20 | disposition home health service (06) | DRG 60 ==
LOC: ER 17:08 → MEDS 23:05
PROVIDERS: Internal Medicine; Physician Assistant; ADMIT Internal Medicine
DX: G35 Multiple sclerosis (principal); G89.29 Other chronic pain; G62.9 Polyneuropathy, unspecified; D72.829 Elevated white blood cell count, unspecified; T38.0X5A Adverse effect of glucocorticoids and synthetic analogues, initial encounter; K59.00 Constipation, unspecified
CPT/HCPCS: 70553; 72156; 80048; 80053; 81001; 83880; 84145; 85025; 85027; 87086; 96365; 96372-59; 96375; 96376; 97110; 97162; 97530; 97530-CQ; 99284-25; A9270; A9579; J1170; J1642; J1650; J2270; J2405; J2930; J3010; J7030; J7050; J7512

== ENCOUNTER 2023-11-16 03:18 | Day surgery (SDC) | payer MEDICARE, BC ==
[~2023-11-16 03:18] MED LIST changes: +ACET325 PO; +AMIT75 PO; +GABA300 PO; +MECL25 PO; +MIRALAX17 GM PO; +Prednisone10 MG PO; +VISBIOME 112.51 EACH PO
[2023-11-16] MEDS ORDERED: OCRELIZUMAB 300 MG in NS 250 ML IV SCH (06:00)
[2023-11-16] MEDS ORDERED: Acetaminophen 325 MG TABLET PO SCH (07:15)
[2023-11-16] MEDS ORDERED: DiphenhydrAMINE HCL 25 MG Cap PO SCH (07:15)
[2023-11-16] MEDS ORDERED: MethylPREDNISolone Sod Succ 125 MG Vial IV SCH (07:15)
[2023-11-16] MEDS ORDERED: Ondansetron HCl 2 MG / ML 2ML Vial IV SCH (07:15)
[2023-11-16 07:49] VITALS: BP 139/82
[2023-11-16 09:29] VITALS: BP 131/84
[2023-11-16 10:30] VITALS: BP 140/106
== END 2023-11-16 12:55 | disposition home or self-care (01) ==
LOC: ATC 03:18
DX: G35 Multiple sclerosis (principal); Z88.0 Allergy status to penicillin; M79.2 Neuralgia and neuritis, unspecified; E55.9 Vitamin D deficiency, unspecified; Z79.620 Long term (current) use of immunosuppressive biologic
CPT/HCPCS: 96375; 96413; 96415; A9270; J1642; J2350; J2919; J7050

== ENCOUNTER 2023-11-28 04:51 | Day surgery (SDC) | payer MEDICARE, BC ==
[2023-11-28] MEDS ORDERED: OCRELIZUMAB 300 MG in NS 250 ML IV SCH (06:00)
[2023-11-28] MEDS ORDERED: Acetaminophen 325 MG TABLET PO SCH (07:05)
[2023-11-28] MEDS ORDERED: DiphenhydrAMINE HCL 25 MG Cap PO SCH (07:05)
[2023-11-28] MEDS ORDERED: Ondansetron HCl 2 MG / ML 2ML Vial XX SCH (07:05)
[2023-11-28] MEDS ORDERED: MethylPREDNISolone Sod Succ 125 MG Vial IV SCH (07:05)
[2023-11-28 08:03] VITALS: BP 131/86
[2023-11-28 09:10] VITALS: BP 116/72
== END 2023-11-28 11:30 | disposition home or self-care (01) ==
LOC: ATC 04:51
DX: G35 Multiple sclerosis (principal); F32.A Depression, unspecified; Z79.899 Other long term (current) drug therapy; Z88.0 Allergy status to penicillin
CPT/HCPCS: 96365; 96366; 96375; A9270; J1642; J2350; J2919; J7050

== ENCOUNTER 2024-04-16 01:06 | Emergency (ER) | payer OTHER, MEDICARE, BC ==
[~2024-04-16] VITALS: Ht 177.8 cm; Wt 129.3 kg
[2024-04-16] MEDS ORDERED: Ketorolac Tromethamine 30mg Vial IM ONE (04:10)
[2024-04-16 06:15] VITALS: BP 112/64
== END 2024-04-16 06:21 | disposition home or self-care (01) ==
LOC: ER 01:06
DX: S83.91XA Sprain of unspecified site of right knee, initial encounter (principal); S80.01XA Contusion of right knee, initial encounter; G35 Multiple sclerosis; Z86.718 Personal history of other venous thrombosis and embolism; Z88.0 Allergy status to penicillin; Z79.899 Other long term (current) drug therapy; Z59.89 Other problems related to housing and economic circumstances; W01.0XXA Fall on same level from slipping, tripping and stumbling without subsequent striking against object, initial encounter; Y93.K1 Activity, walking an animal
CPT/HCPCS: 73562-RT; 96372; 99283-25; J1885

== ENCOUNTER 2024-05-11 11:31 | Emergency (ER) | payer MEDICARE, BC, OTHER ==
[~2024-05-11] VITALS: Ht 180.3 cm; Wt 120.8 kg
[2024-05-11 11:52] VITALS: BP 140/104
[2024-05-11 12:35] LABS: BASOPHILS ABSOLUTE AUTO 0.05 K/mm3 (0.00-0.23); BASOPHILS PERCENT AUTO 1 % (0-2); EOSINOPHILS ABSOLUTE AUTO 0.29 K/mm3 (0.00-0.68); EOSINOPHILS PERCENT AUTO 5 % (0-6); Hematocrit 44.3 % (33.0-51.0); Hemoglobin 14.6 g/dL (11.5-16.0); IMMATURE GRAN ABSOLUTE AUTO 0.02 K/mm3 (0.00-0.10); IMMATURE GRAN PERCENT AUTO 0 % (0-1); LYMPHOCYTES ABSOLUTE AUTO 1.27 K/mm3 (0.84-5.20); LYMPHOCYTES PERCENT AUTO 21 % (21-46); MONOCYTES ABSOLUTE AUTO 0.45 K/mm3 (0.16-1.47); MONOCYTES PERCENT AUTO 8 % (4-13); Mean Corpuscular HGB 27.7 pg (26.0-34.0); Mean Corpuscular Volume 84 fL (80-100); Mean Platelet Volume 10.3 fL (9.1-12.4); NEUTROPHILS ABSOLUTE AUTO 3.88 K/mm3 (1.96-9.15); NEUTROPHILS PERCENT AUTO 65 % (41-73); Platelet Count 262 K/mm3 (150-400); RDW Coefficient Variation 12.5 % (11.7-14.2); RDW Standard Deviation 38.1 fL (35.1-46.3); Red Blood Cell Count 5.27 M/mm3 (3.80-5.20); White Blood Cell Count 5.96 K/mm3 (4.00-11.30)
[2024-05-11 13:04] LABS: Albumin, Blood 3.9 g/dL (3.4-5.0); Albumin/Globulin Ratio 1.1 (0.8-1.8); Bilirubin, Total 0.5 mg/dL (0.1-1.0); Bun/Creatinine Ratio 18.6 (12.0-20.0); Calcium, Blood 9.3 mg/dL (8.5-10.1); Creatinine, Blood 0.75 mg/dL (0.40-1.00); Globulin, Blood 3.7 g/dL (2.2-4.0); Potassium, Blood 4.1 mmol/L (3.5-5.5); Total Protein, Blood 7.6 g/dL (6.4-8.2)
[2024-05-11 15:14] LABS: Source, Urine Clean Catch
[2024-05-11 15:16] LABS: Appearance, Urine Hazy (Clear); Blood, Urine Neg (Neg); Color, Urine Amber (P-Yellow); Glucose Qualitative, Urine Neg (Neg); Ketones, Urine Neg (Neg); Leukocyte Esterase, Urine 3+ (Neg); Nitrite, Urine Neg (Neg); Protein, Urine 2+ (Neg); Specific Gravity, Urine 1.025 (1.003-1.022); Urobilinogen, Urine NORM (Normal)
[2024-05-11 15:22] LABS: Bilirubin, Urine 1+ (Neg)
[2024-05-11 15:23] LABS: Bacteria Many /hpf; Red Blood Cells, Urine 0-2 /hpf (0-2); Squamous Epithelial Cells Many /hpf (Few); White Blood Cells, Urine 25-50 /hpf (0-5)
== END 2024-05-11 15:40 | disposition home or self-care (01) ==
LOC: ER 11:31
PROVIDERS: Emergency Medicine
DX: R20.2 Paresthesia of skin (principal); Z79.899 Other long term (current) drug therapy; Z88.0 Allergy status to penicillin
CPT/HCPCS: 80053; 81001; 84484; 85025; 87086; 93005; 93010; 99284-25

== ENCOUNTER 2024-06-06 07:32 | Day surgery (SDC) | payer MEDICARE, OTHER ==
[~2024-06-06 07:32] MED LIST changes: +Acetaminophen 325 MG TABLET PO SCH; +DiphenhydrAMINE HCL 25 MG Cap PO SCH; +MethylPREDNISolone Sod Succ 125 MG Vial IV SCH; +OCRELIZUMAB 600 MG in NS 500 ML IV SCH
[2024-06-06 07:50] VITALS: BP 145/80
[2024-06-06] MEDS ORDERED: OCRELIZUMAB IV (07:54)
[2024-06-06 08:37] VITALS: BP 125/71
[2024-06-06 08:52] VITALS: BP 136/71
[2024-06-06 11:13] VITALS: BP 133/74
[2024-06-06 11:55] VITALS: BP 120/68
== END 2024-06-06 12:10 | disposition home or self-care (01) ==
LOC: ATC 07:32
DX: G35 Multiple sclerosis (principal); Z88.0 Allergy status to penicillin
CPT/HCPCS: 96365; 96366; 96375; A9270; J1642; J2350; J2919; J7040

== ENCOUNTER 2024-06-09 08:34 | Emergency (ER) | payer MEDICARE, OTHER ==
[~2024-06-09] VITALS: Ht 180.3 cm; Wt 119.3 kg
[~2024-06-09 08:34] MED LIST changes: -Acetaminophen 325 MG TABLET PO SCH; -DiphenhydrAMINE HCL 25 MG Cap PO SCH; -MethylPREDNISolone Sod Succ 125 MG Vial IV SCH; -OCRELIZUMAB 600 MG in NS 500 ML IV SCH; +OCRELIZUMAB IV
[2024-06-09 09:40] VITALS: BP 148/102
[2024-06-09] MEDS ORDERED: MethylPREDNISolone Sod Succ 125 MG Vial IV ONE (09:45)
== END 2024-06-09 12:01 | disposition home or self-care (01) ==
LOC: ER 08:34
DX: G35 Multiple sclerosis (principal); Z88.0 Allergy status to penicillin; Z79.899 Other long term (current) drug therapy
CPT/HCPCS: 96374; 99284-25; J2919

== ENCOUNTER 2024-06-10 04:58 | Day surgery (SDC) | payer MEDICARE, OTHER ==
[2024-06-10] MEDS ORDERED: MethylPREDNISolone Sod Succ 125 MG Vial IV SCH (06:00)
[2024-06-10] MEDS ORDERED: MethylPREDNISolone Sod Succ 1,000 MG in Dextrose 5% 50 ML IV SCH (13:00)
[2024-06-10 16:52] VITALS: BP 115/61
== END 2024-06-10 17:49 | disposition home or self-care (01) ==
LOC: ATC 04:58
DX: G35 Multiple sclerosis (principal); Z88.0 Allergy status to penicillin; Z79.899 Other long term (current) drug therapy; Z90.49 Acquired absence of other specified parts of digestive tract
CPT/HCPCS: 96365; J1642; J2919

== ENCOUNTER 2024-06-11 02:48 | Day surgery (SDC) | payer MEDICARE, OTHER ==
[2024-06-11] MEDS ORDERED: MethylPREDNISolone Sod Succ 1,000 MG in Dextrose 5% 50 ML IV SCH (06:00)
[2024-06-11 15:37] VITALS: BP 126/80
== END 2024-06-11 15:48 | disposition home or self-care (01) ==
LOC: ATC 02:48
DX: G35 Multiple sclerosis (principal); Z79.899 Other long term (current) drug therapy; Z88.0 Allergy status to penicillin; Z90.49 Acquired absence of other specified parts of digestive tract
CPT/HCPCS: 96365; J1642; J2919

== ENCOUNTER 2024-06-12 02:41 | Day surgery (SDC) | payer MEDICARE, OTHER ==
[2024-06-12] MEDS ORDERED: MethylPREDNISolone Sod Succ 1,000 MG in Dextrose 5% 50 ML IV SCH (06:00)
[2024-06-12 15:13] VITALS: BP 105/67
== END 2024-06-12 15:44 | disposition home or self-care (01) ==
LOC: ATC 02:41
DX: G35 Multiple sclerosis (principal); Z88.0 Allergy status to penicillin; Z79.899 Other long term (current) drug therapy
CPT/HCPCS: 96365; J1642; J2919

== ENCOUNTER 2024-12-07 08:01 | Day surgery (SDC) | payer MEDICARE, OTHER ==
[2024-12-07 08:00] VITALS: BP 128/75
[~2024-12-07 08:01] MED LIST changes: +OCRELIZUMAB 600 MG in NS 500 ML IV SCH
== END 2024-12-07 12:16 | disposition home or self-care (01) ==
LOC: ATC 08:01
DX: G35 Multiple sclerosis (principal); Z79.899 Other long term (current) drug therapy; Z88.0 Allergy status to penicillin
CPT/HCPCS: 96365; 96366; 96375; A9270; J1642; J2350; J2919; J7040

== ENCOUNTER 2025-01-17 02:41 | Day surgery (SDC) | payer MEDICARE, OTHER ==
[~2025-01-17 02:41] MED LIST changes: -OCRELIZUMAB 600 MG in NS 500 ML IV SCH
[2025-01-17 10:44] VITALS: BP 120/90
== END 2025-01-17 11:50 | disposition home or self-care (01) ==
LOC: ATC 02:41
DX: G35 Multiple sclerosis (principal); Z88.0 Allergy status to penicillin; Z79.899 Other long term (current) drug therapy
CPT/HCPCS: 96365; J1642; J2919

== ENCOUNTER 2025-01-18 02:08 | Day surgery (SDC) | payer MEDICARE, OTHER ==
[2025-01-18 10:28] VITALS: BP 133/92
== END 2025-01-18 11:09 | disposition home or self-care (01) ==
LOC: ATC 02:08
DX: G35 Multiple sclerosis (principal); Z79.899 Other long term (current) drug therapy; Z88.0 Allergy status to penicillin
CPT/HCPCS: 96365; J1642; J2919